=== PATIENT | female | born 1970 | race Caucasian/White ===

== ENCOUNTER 2018-11-11 09:56 | Inpatient (IN) ==
[2018-11-11] MEDS ORDERED: Acetaminophen IV 1,000 MG/100 ML INFUS..BTL IVPB PRN ×4 (11:57→18:00)
[2018-11-11] MEDS ORDERED: *HR* Promethazine 25 MG/ML VIAL IVP PRN (11:57)
[2018-11-11] MEDS ORDERED: OXYCODONE Oral CONC 10 MG/0.5 ML ORAL.SYG SL PRN ×4 (11:57→17:58)
[2018-11-11] MEDS ORDERED: Naloxone 0.4 MG/ML INJ IVP PRN ×2 (11:57→17:31)
[2018-11-11] MEDS ORDERED: Ondansetron 4 MG/2 ML VIAL IVP PRN ×2 (11:57→17:31)
[2018-11-11] MEDS ORDERED: 0.9 % Sodium Chloride 1,000 ML IVC SCH ×2 (12:00→17:31)
[2018-11-11] MEDS ORDERED: Promethazine 25 MG in 0.9 % Sodium Chloride 50 ML IVPB PRN ×2 (12:07→17:31)
--- NOTE | 2018-11-11 12:48 | Urology - Consult Note ---
<Ekta Farfan N - Last Filed: 11/11/18 12:43> Date of Encounter: 11/11/18 Time of Encounter: 12:00 - Assessment and Plan (1) Ureteral calculi Current Visit: Yes Status: Acute Assessment and plan: Patient is a 48-year-old female who presents with left proximal ureteral calculi and hydronephrosis. Vital signs are currently stable and afebrile. Urine culture has been collected. Discussed surgical risks and benefits with patient. Patient verbalized understanding, and consent has been signed. Patient is prepared undergo a cystoscopy and left ureteral stent placement later today with Dr. Mills. She will remain nothing by mouth. Patient is aware she will require a staged stone extraction procedure, and this will be scheduled as an outpatient. (2) Hydronephrosis Current Visit: Yes Status: Acute Qualifiers: Hydronephrosis type: with ureteral calculous obstruction Qualified Code(s): N13.2 - Hydronephrosis with renal and ureteral calculous obstruction Urology CN:HPI Consult date: 11/11/18 Reason for consult Urology: Other (left proximal ureteral stones) History of present illness: Patient is a 48-year-old female who presents with left proximal ureteral calculi and hydronephrosis. Patient underwent a CT of the abdomen and pelvis at [facility] revealing 2 proximal ureteral stones measuring up to 7 mm total and hydronephrosis. Patient initially presented to [facility] emergency department with complaints of left flank pain, chills, nausea and vomiting and was subsequently transferred to [facility] for urologic intervention. Patient states she is experienced symptoms for approximately 2 days. Patient states she has a recurrent history of renal stones, with her last stone occurring several years ago. Patient has a history of a brain aneurysm, and she states her memory is not reliable. Patient is unsure if she required surgical intervention for renal stones in the past. Patient denies any known family history of renal stones. Currently, patient is resting upright in bed in no apparent distress. Patient admits to left flank pain, chills, nausea, but she denies any dysuria, fever, gross hematuria, or incontinence. Past Med Surg Social Fam HX - Social History Smoking Status: Smoker, status unknown Alcohol use: unknown Drug use: unknown - Additional Family History Additional family history: Patient denies any known family history of renal stones Medications and Allergies Gabapentin [Neurontin] 300 mg PO TID 03/06/19 [History] RX: Etodolac 500 mg PO BID 11/11/18 [History] Allergy/AdvReac Type Severity Reaction Status Date / Time No Known Drug Allergies Allergy NONE Verified 11/11/18 12:51 Review of Systems - Constitutional chills, fatigue, no fever(s) - EENT Nose, mouth and throat: no dizziness, no headache(s) - Cardiovascular no chest pain, no diaphoresis, no dyspnea - Respiratory no cough, no dyspnea - Gastrointestinal abdominal pain, nausea, vomiting - Genitourinary Genitourinary: flank pain, no change in urinary stream, no difficulty urinating, no dysuria, no hematuria, no urinary frequency, no urinary hesitancy, no urinary incontinence, no urinary urgency - Musculoskeletal back pain, no muscle weakness - Integumentary no erythema, no rash - Neurological no confusion, no syncope - Psychiatric no anxiety, no confusion - Hematologic/Lymphatic no easy bleeding, no easy bruising - Allergic/Immunologic no throat swelling, no wheezing Exam Initial Vital Signs Temp Pulse Resp BP Pulse Ox 98.5 F 82 18 107/72 100 11/11/18 12:03 11/11/18 12:03 11/11/18 12:03 11/11/18 12:03 11/11/18 12:03 - General physical appearance Present: well developed, no distress, moderate pain - Eyes Present: PERRL, normal ocular movement - ENT Present: normal nares, no congestion - Neck Present: no masses, trachea midline - Respiratory Present: normal respiratory effort - Abdomen Abdomen: Present: soft, non tender - Integumentary Present: no rash, no abnormal pigmentation - Neurologic Present: normal coordination Urology Results - Labs All other labs normal. - Imaging CT scan - abdomen: report reviewed, image reviewed CT scan - pelvis: report reviewed Consult Discharge Plan - Plan Referrals: Jeremy Cash MD [Primary Care Provider] - <Matthew Mills - Last Filed: 11/11/18 18:12> Date of Encounter: 11/11/18 Exam Initial Vital Signs Temp Pulse Resp BP Pulse Ox 98.5 F 82 18 107/72 100 11/11/18 12:03 11/11/18 12:03 11/11/18 12:03 11/11/18 12:03 11/11/18 12:03 Urology Results - Labs Abnormal lab results ABG pH 7.28 pH Units (7.32-7.45) L 11/11/18 17:12 ABG pCO2 29 mmHg (35-45) L 11/11/18 17:12 ABG pO2 370 mmHg (85-104) H 11/11/18 17:12 ABG HCO3 14 mEq/L (21-27) L 11/11/18 17:12 ABG Total CO2 15 mEq/L (20-26) L 11/11/18 17:12 ABG O2 Saturation 100 % (95-98) H 11/11/18 17:12 ABG Base Excess -12 mEq/L (-2 to 3) L 11/11/18 17:12 ABG Hematocrit 33.0 % (35.3-44.9) L 11/11/18 17:12 ABG Chloride 117 mEq/L (98-107) H 11/11/18 17:12 Potassium 3.0 mEq/L (3.5-5.3) L 11/11/18 17:12 All other labs normal.
[2018-11-11] MEDS ORDERED: cefTRIAXone 1,000 MG in Water for inj. (sterile) 20 ML 10 ML IVP ONE (16:08)
--- NOTE | 2018-11-11 16:13 | Anesthesia Evaluation PreOp ---
Date of Encounter: 11/11/18 Time of Encounter: 16:10 - Past History Planned Operation: Cystoscopy, Left Ureteral Stent Cardiac History: Denies any Significant Hx Pulmonary History: Smoker INFORMATION SYSTEMS COORDINATOR History: Other (Brain Aneurysm, Insomnia, RA) Other Medical History: Renal (Stones, urosepsis), GERD, Other (Neuropathy) Anesthesia History: No Prior Anesthetic Complications, Past Anesthesia (Brain aneurysm Clipping< GB, C/s) : No Test: Negative (11/11/2018) Alcohol Use: rarely Drug use: none Medications and Allergies Etodolac 500 mg PO BID 11/11/18 [History] Gabapentin [Neurontin] 300 mg PO TID 11/11/18 [History] Allergy/AdvReac Type Severity Reaction Status Date / Time No Known Drug Allergies Allergy NONE Verified 11/11/18 12:51 - Meds/Allergy Pre-op Review Medications Reviewed: Yes Allergies Reviewed: Yes Beta Blockers on Current Med List: No Anesthesia Results - Labs Laboratory Tests 11/11/18 11/11/18 11:56 15:22 POC Glucose 89 Serum , Qual Negative Anesthesia Exam Vital Signs/O2 Sat, Most Current Temp Pulse Resp BP Pulse Ox 106.3 F H 133 19 114/70 98 11/11/18 15:59 11/11/18 15:59 11/11/18 15:59 11/11/18 15:59 11/11/18 15:59 NPO (# of Hours): > 8 hrs Pain Scale: 0 Pain Scale Used: Numeric (1 - 10) - HEENT Pupil (Motor): Pupils equal, EOMI Mallampati: II Teeth: Edentulous Oral Opening: Greater than 3 - INFORMATION SYSTEMS COORDINATOR LOC: Oriented INFORMATION SYSTEMS COORDINATOR Motor: Normal RUE, Normal LUE, Normal RLE, Normal LLE, Normal Face INFORMATION SYSTEMS COORDINATOR Sensory: Normal: RUE, LUE, RLE, LLE, Face - Cardiac Rhythm: Regular Murmur: None JVD: No Carotid Bruit: No - Pulmonary Breath Sounds: bilateral Clear Respiratory Effort: Symmetrical Anesthesia Assess/Plan ASA Score: 3 Level of consciousness: Cooperative Anesthetic Plan: General Autologous Blood: Yes Monitoring Plan: Standard Monitors Recovery Plan: PACU
[2018-11-11] MEDS ORDERED: Isovue-300 50 ML VIAL ONE (16:17)
[2018-11-11] MEDS ORDERED: *HR* Midazolam HCl 2 MG/2 ML VIAL ONE (16:20)
[2018-11-11] MEDS ORDERED: Ondansetron 4 MG/2 ML VIAL ONE (16:20)
[2018-11-11] MEDS ORDERED: *HR* FentaNYL (PF) 100 MCG/2 ML VIAL ONE (16:20)
[2018-11-11] MEDS ORDERED: Lidocaine -MPF 2% 2 ML VIAL ONE (16:20)
[2018-11-11] MEDS ORDERED: *HR* Propofol 200 MG/20 ML VIAL IVP ONE (16:20)
[2018-11-11] MEDS ORDERED: Dexamethasone 4 MG/ML VIAL ONE (16:20)
[2018-11-11] MEDS ORDERED: Acetaminophen IV 1,000 MG/100 ML INFUS..BTL ONE (16:22)
[2018-11-11] MEDS ORDERED: Water for inj. (sterile) 10 ML IV ONE (16:32)
[2018-11-11] MEDS ORDERED: *HR* Etomidate 40 MG/20 ML VIAL IVP ONE (16:33)
--- NOTE | 2018-11-11 16:35 | Event Note ---
Date of Encounter: 11/11/18 Time of Encounter: 16:33 I was contacted by 2A prior to pt transfer to the OR. She was noted to have a elevated temperature to 105 orally and tachycardia. Rectal temperature was 106. I evaluated the patient within minutes of the phone call and she was responsive and answering questions appropriately. She was somnolent however. I ordered 1 g of Tylenol IV, 1 g of Rocephin and a cooling blanket. She was immediately transferred to the operating room as I feel she requires urgent decompression of the left kidney with ureteral stent. I discussed the situation with the family. They understand that after decompression of the collecting system that her condition could worsen requiring prolonged intubation, vasopressors and ICU management. We will see how she responds to the procedure and anesthesia.
[2018-11-11] MEDS ORDERED: Lacri-Lube 3.5 GM TUBE ONE (16:38)
[2018-11-11] MEDS ORDERED: *HR* PHENYLEPHRINE 1,000 MCG/10 ML SYRINGE IVP ONE (16:51)
[2018-11-11 17:17] LABS: ABG Base Excess -12 mEq/L (-2 to 3); ABG Chloride 117 mEq/L (98-107); ABG Glucose 66 mg/dL (60-95); ABG HCO3 14 mEq/L (21-27); ABG Ionized Calcium 1.16 mmol/L (1.15-1.35); ABG Oxygen Saturation 100 % (95-98); ABG PCO2 29 mmHg (35-45); ABG PH 7.28 pH Units (7.32-7.45); ABG PO2 370 mmHg (85-104); ABG TCO2 15 mEq/L (20-26)
[2018-11-11] MEDS ORDERED: Sodium Bicarbonate 50 MEQ/50 ML VIAL ONE (17:20)
--- NOTE | 2018-11-11 17:27 | Pulmonology Consult Note ---
<DarlingIsadora M - Last Filed: 11/11/18 17:46> Date of Encounter: 11/11/18 Medications and Allergies Etodolac 500 mg PO BID 11/11/18 [History] Gabapentin [Neurontin] 300 mg PO TID 11/11/18 [History] Allergy/AdvReac Type Severity Reaction Status Date / Time No Known Drug Allergies Allergy NONE Verified 11/11/18 12:51 All Systems: The remainder of the systems were reviewed and are negative Physical Examination Vital Signs: Vital Signs, Last 4 Hours Temp Pulse Resp BP Pulse Ox 11/11/18 17:40 102.1 F H 105 20 94/52 98 11/11/18 17:30 112 24 94/64 99 11/11/18 17:20 112 24 103/51 98 11/11/18 17:10 103.1 F H 121 24 98/54 100 11/11/18 15:59 106.3 F H 133 19 114/70 98 Results - Laboratory Findings ABG ABG pH 7.28 pH Units (7.32-7.45) L 11/11/18 17:12 ABG pCO2 29 mmHg (35-45) L 11/11/18 17:12 ABG pO2 370 mmHg (85-104) H 11/11/18 17:12 ABG O2 Saturation 100 % (95-98) H 11/11/18 17:12 Abnormal lab findings: Abnormal lab results ABG pH 7.28 pH Units (7.32-7.45) L 11/11/18 17:12 ABG pCO2 29 mmHg (35-45) L 11/11/18 17:12 ABG pO2 370 mmHg (85-104) H 11/11/18 17:12 ABG HCO3 14 mEq/L (21-27) L 11/11/18 17:12 ABG Total CO2 15 mEq/L (20-26) L 11/11/18 17:12 ABG O2 Saturation 100 % (95-98) H 11/11/18 17:12 ABG Base Excess -12 mEq/L (-2 to 3) L 11/11/18 17:12 ABG Hematocrit 33.0 % (35.3-44.9) L 11/11/18 17:12 ABG Chloride 117 mEq/L (98-107) H 11/11/18 17:12 Potassium 3.0 mEq/L (3.5-5.3) L 11/11/18 17:12 - Clinical Findings Intake & Output: Intake & Output 11/11/18 11/11/18 11/11/18 07:59 15:59 23:59 Intake Total Output Total 0 / 0 Balance Weight 88.451 kg Consult Discharge Plan - Plan Referrals: Jeremy Cash MD [Primary Care Provider] - - Attending Attestation I examined this patient and my medical decision-making was reviewed with the Resident Physician. I agree with the documented findings, disposition and treatment plan as described except to the extent set forth below. Patient seen and examined. Dr. Mills from neurology called me to evaluate this patient and she was seen and examined in the PACU after her surgery Labs, radiology, chart personally reviewed. 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, Pulmonary: Acceptable oxygenation and ventilation, and her tachypnea is from her metabolic lactic acidosis, however she is maintaining Airway and she was extubated after surgery Cardiovascular: At this time relatively stable, however she will need more fluid and her condition could deteriorate for that reason she would need to be in the ICU for close monitoring this patient and with her significant temperature and she may need vasopressors if her condition does not improve with fluid GI: Nutrition per dietary and GI prophylaxis per routine Heme: DVT prophylaxis per routine ID: Continue antibiotics and plan to de-escalation. Clearly there is pus coming out and then catheter from her urinary system and that is the source for now we will double cover since she has previous history and could be resistant and she will be treated for sepsis with fluid resuscitation and cultures with broad- spectrum antibiotics and follow-up lactic acid. Renal; urine out put and renal funtion reviewed Endorcine: blood glucose is monitored Lines: all lines checked and no evidence of infections Skin: skin care to prevent pressure ulcers per nursing routine care I spent 35 min of Critical Care time with this patient. It involved decision making of high complexity to assess, manipulate, and support vital organ system failure and/or to prevent further life threatening deterioration of the patient's condition. The time involved in the performance of separately reportable procedures was not counted toward critical care time. <Angus Phelps S - Last Filed: 11/11/18 18:13> Date of Encounter: 11/11/18 Time of Encounter: 17:55 Assessment and Plan (1) Sepsis Current Visit: Yes Status: Acute Pt who is here for left proximal ureteral stone, has past hx of kidney stones - had cystoscopy with left retrograde pyelogram and left ureteral stent placement with Dr Mills this afternoon - noted to be 106* in the OR Meets SIRS criteria for fever, HR 110, RR 24 - source of infxn likely infected stone CT from [facility] showed proximal ureteral stones measuring up to 7 mm total and hydronephrosis. Plan: - management in the ICU overnight - blood cx pending - urine cx pending - start levaquin/zosyn day 1 - give D5 in 2amps bicarb - IVF with 200cc/hr LR - acetaminophen IV for breakthru pain or fevers q6hr - oxycodone SL q6hr prn pain - cbc and cmp in AM Qualifiers: Sepsis type: sepsis due to unspecified organism Qualified Code(s): A41.9 - Sepsis, unspecified organism (2) Fever Current Visit: Yes Status: Acute T max of 106. See plan as above for sepsis. Qualifiers: Fever type: due to other condition Qualified Code(s): R50.81 - Fever presenting with conditions classified elsewhere (3) History of brain surgery Current Visit: Yes Status: Acute Has hx of brain aneurysm. (4) Obesity Current Visit: Yes Status: Acute BMI 30.5 chronic Qualifiers: Obesity type: due to excess calories Obesity classification: adult class 1 (BMI 30 - 34.9) Serious obesity comorbidity presence: without serious comorbidity Body mass index: BMI 30.0-30.9 Qualified Code(s): E66.09 - Other obesity due to excess calories; Z68.30 - Body mass index (BMI) 30.0-30.9, adult (5) Peripheral neuropathy Current Visit: Yes Status: Acute on gabapentin Qualifiers: Peripheral neuropathy type: polyneuropathy, unspecified Qualified Code(s): G62.9 - Polyneuropathy, unspecified (6) Ureteral calculi Current Visit: Yes Status: Acute S/P Cystoscopy w/ left retrograde pyelogram and left ureteral stent placement. (7) Hydronephrosis Current Visit: Yes Status: Acute Likely secondary to kidney stone. Qualifiers: Hydronephrosis type: with ureteral calculous obstruction Qualified Code(s): N13.2 - Hydronephrosis with renal and ureteral calculous obstruction (8) DVT prophylaxis Current Visit: Yes Status: Acute scd (9) Nausea Current Visit: Yes Status: Acute Zofran prn History of Present Illness Consult date: 11/11/18 Requesting physician: Matthew Mills Reason for consult: other (temperature 106) Chief complaint: kidney stone History of present illness: Pt is a 48yo femlae who is here with left proximal ureteral calculi and hyd ronephrosis. She was taken to the OR by Dr Mills for stone removal and noted to have extremely pussy material coming from the ureter. She does have a PMH of previous kidney stone and brain aneuyrsm. She had a CT abd/pelvis at [facility] which showed a 2 proximal ureteral stones measuring up to 7 mm total and hydronephrosis. She had complaints of left flank pain, chills and some N/V x 2 days. She was transferred to [facility]. During surgery she was noted to have a temperature f 106* and was cooled while on the table as well as w/ IV tylonal. She was seen at bedside by myself and Dr. Hastings after surgery. She is very lethargic and tired. She will be moved to ICU for further evaluation and treatment. She does say she is unsure of some of the events and history bc of her brain surgery for the aneurysm that her memory is not reliable. Past Med Surg Social Fam HX - Past Medical History Medical history: GERD, RA, other Additional medical history: Neuropathy, Brain Aneurysm & kidney stones Psychiatric history: depression, panic disorder - Past Surgical History Surgical History: , cholecystectomy Additional surgical history: Right knee & B/L shoulder surgery, Brain aneurysm surgery and kidney stone surgery - Social History Smoking Status: Current every day smoker Packs per day: 1 Smokeless Tobacco Status: No Alcohol use: rarely Drug use: none - Family History Mother Living Status: Age at : 63 Cause of : Cancer Hx Family Cancer: Yes (Melanoma) Father Living Status: Age at : 72 Cause of : Alzheimers Hx Family Neuromuscular Disorders: Yes (Alzheimers) All Systems: The remainder of the systems were reviewed and are negative - Constitutional Constitutional: chills, fever(s) - Cardiovascular Cardiovascular: no chest pain, no chest pain at rest, no lightheadedness - Respiratory Respiratory: no cough, no dyspnea - Gastrointestinal Gastrointestinal: abdominal pain, nausea, vomiting - Genitourinary Genitourinary: urinary frequency - Neurological Neurological: weakness - Endocrine Endocrine: fatigue - Hematologic/Lymphatic Hematologic/Lymphatic: no easy bleeding, no easy bruising Physical Examination Vital Signs: Vital Signs, Last 4 Hours Temp Pulse Resp BP Pulse Ox 11/11/18 15:59 106.3 F H 133 19 114/70 98 General appearance: lethargic Eyes: nonicteric ENT: oropharynx dry Effort: mildly labored Auscultation: bilateral: diminished breath sounds, other (no wheeze/rhonchi or rales) Cardiovascular: other (tacycardia) Gastrointestinal: soft, tender, non-distended, other (midline scar form c- section, obese abd) Integumentary: normal Extremities: no cyanosis, no edema, pink and warm, pulses normal, no ischemia or petechiae Musculoskeletal: no deformities unable to assess due to mental status other (unable to assess, very lethargic ) Results - Laboratory Findings ABG ABG pH 7.28 pH Units (7.32-7.45) L 11/11/18 17:12 ABG pCO2 29 mmHg (35-45) L 11/11/18 17:12 ABG pO2 370 mmHg (85-104) H 11/11/18 17:12 ABG O2 Saturation 100 % (95-98) H 11/11/18 17:12 Abnormal lab findings: Abnormal lab results ABG pH 7.28 pH Units (7.32-7.45) L 11/11/18 17:12 ABG pCO2 29 mmHg (35-45) L 11/11/18 17:12 ABG pO2 370 mmHg (85-104) H 11/11/18 17:12 ABG HCO3 14 mEq/L (21-27) L 11/11/18 17:12 ABG Total CO2 15 mEq/L (20-26) L 11/11/18 17:12 ABG O2 Saturation 100 % (95-98) H 11/11/18 17:12 ABG Base Excess -12 mEq/L (-2 to 3) L 11/11/18 17:12 ABG Hematocrit 33.0 % (35.3-44.9) L 11/11/18 17:12 ABG Chloride 117 mEq/L (98-107) H 11/11/18 17:12 Potassium 3.0 mEq/L (3.5-5.3) L 11/11/18 17:12 - Clinical Findings Intake & Output: Intake & Output 11/11/18 11/11/18 11/11/18 07:59 15:59 23:59 Intake Total Output Total 0 / 0 Balance Weight 88.451 kg
--- NOTE | 2018-11-11 17:33 | Operative Note ---
Date of procedure: 11/11/18 Pre-op diagnosis: Left proximal ureteral stone Post-op diagnosis: same Procedure: Cystoscopy. Left retrograde pyelogram. Left ureteral stent placement. Anesthesia: GETA Surgeon: Matthew Mills Was there an human resources assistant present: No Estimated blood loss (cc): 0 Specimen: none Condition: critical Disposition: ICU Procedure in Detail: PROCEDURE IN DETAIL: Patient was taken back to the operating room, positioned supine on the operating table. Anesthesia was applied without complication. They were moved into dorsal lithotomy. Careful attention was maintained to cushion all pressure points for patient's safety. They were prepped and draped in sterile fashion. Time-out was performed with the proper patient and procedure. A 21-Palauan rigid cystoscope was inserted into the bladder without difficulty. Systematic examination of bladder revealed some cystitis cystica and significant debris. The left ureteral orifice was cannulated using a 5-Palauan ureteral Catheter and a retrograde pyelogram was performed using Isovue. A filling defect was identified which corresponded to the stone in the proximal ureter. At that point, a zip wire was placed through the 5-Palauan and confirmed in the renal pelvis with fluoroscopy. A 6 x 26 ureteral stent was placed over the zip wire. Significant purulent material was draining from her left collecting system. Stent was deployed in good position and I placed a Banks catheter to gravity drainage
[2018-11-11] MEDS ORDERED: SODIUM BICARBONATE IVC SCH (18:00)
[2018-11-11] MEDS ORDERED: Piperacillin/Tazobactam 3.375 GM in Water for inj. (sterile) 20 ML 20 ML IVP SCH (18:00)
[2018-11-11] MEDS ORDERED: WATER IVC SCH (18:00)
[2018-11-11] MEDS ORDERED: D5 IVC SCH (18:00)
[2018-11-11] MEDS ORDERED: Ringers Solution, Lactated 1,000 ML ONE (18:25)
[2018-11-11 18:35] LABS: Immature Granulocytes % 0.5 % (0-4); Red Cell Distribution Width 14.4 % (11.5-14.5)
[2018-11-11 18:36] LABS: Eosinophils % 0.3 %
[2018-11-11 18:38] LABS: Basophils % 0.3 %; Hematocrit 36.3 % (35.3-44.9); Hemoglobin 11.7 g/dL (11.5-15.4); Immature Platelets 1.7 % (1.1-6.1); Lymphocytes # 0.2 K/mcL (0.6-4.6); Lymphocytes % 4.6 %; Mean Corpuscular HGB Conc 32.2 g/dL (31.6-35.5); Mean Corpuscular Hemoglobin 29.2 pg (28.0-33.3); Mean Corpuscular Volume 90.5 fL (83.0-100.0); Mean Platelet Volume 9.6 fL (9.4-12.4); Monocytes % 0.5 %; Neutrophils # 3.5 K/mcL (1.6-8.9); Red Blood Count 4.01 M/mcL (3.82-4.97); Segmented Neutrophils % 93.8 %
[2018-11-11 18:55] LABS: Albumin 2.8 g/dL (3.5-5.7); Albumin/Globulin Ratio 1.5 (1.1-2.2); Bilirubin,Total 1.8 mg/dL (0.3-1.0); Calcium 7.3 mg/dL (8.6-10.3); Globulin 1.9 g/dL (2.4-3.5); Potassium 3.1 mEq/L (3.5-5.1); Total Protein 4.7 g/dL (6.4-8.9)
[2018-11-11] MEDS: Ringers Solution, Lactated 1,000 ML IVC SCH ×3 (19:00→22:17)
[2018-11-11 19:13] LABS: Large Platelets Present (Not Present); Platelet Count 93 K/mcL (140-400); Platelet Estimate Marked Decrease (Normal)
[2018-11-11] MEDS: Levofloxacin 750 MG/150 ML 750 MG/150 ML BAG IVPB SCH (20:44)
[2018-11-11] MEDS ORDERED: Sodium Bicarbonate 100 MEQ in D5% in Water 1,000 ML IVC SCH (20:45)
[2018-11-11] MEDS: Piperacillin/Tazobactam 3.375 GM in 0.9 % Sodium Chloride Mini Bag 100 ML IVP SCH (21:36)
[2018-11-11] MEDS: OXYCODONE Oral CONC 10 MG/0.5 ML ORAL.SYG SL PRN (21:59)
[2018-11-11] MEDS ORDERED: Ringers Solution, Lactated 500 ML IVC ONE (22:21)
[2018-11-11] MEDS ORDERED: Ringers Solution, Lactated 500 ML ONE (22:31)
[2018-11-12] MEDS ORDERED: Ringers Solution, Lactated 1,000 ML IVC ONE (00:39)
[2018-11-12] MEDS: Ringers Solution, Lactated 1,000 ML IVC SCH ×4 (01:50→16:35)
[2018-11-12 03:34] LABS: Hemoglobin 11.5 g/dL (11.5-15.4)
[2018-11-12 03:41] LABS: Basophils % 0.2 %; Eosinophils % 0.1 %; Hematocrit 36.4 % (35.3-44.9); Immature Granulocytes % 1.4 % (0-4); Immature Platelets 4.5 % (1.1-6.1); Lymphocytes # 0.4 K/mcL (0.6-4.6); Mean Corpuscular HGB Conc 31.6 g/dL (31.6-35.5); Mean Corpuscular Hemoglobin 29.2 pg (28.0-33.3); Mean Corpuscular Volume 92.4 fL (83.0-100.0); Mean Platelet Volume 10.3 fL (9.4-12.4); Monocytes # 0.5 K/mcL (0.0-1.3); Monocytes % 2.4 %; Neutrophils # 18.1 K/mcL (1.6-8.9); Red Blood Count 3.94 M/mcL (3.82-4.97); Red Cell Distribution Width 14.6 % (11.5-14.5); Segmented Neutrophils % 93.9 %
[2018-11-12 03:45] LABS: Platelet Count 91 K/mcL (140-400)
[2018-11-12 03:54] LABS: Calcium 7.3 mg/dL (8.6-10.3); Magnesium 1.7 mg/dL (1.6-2.6); Potassium 3.3 mEq/L (3.5-5.1)
[2018-11-12] MEDS: Piperacillin/Tazobactam 3.375 GM in 0.9 % Sodium Chloride Mini Bag 100 ML IVP SCH ×3 (04:03→22:34)
[2018-11-12 04:17] LABS: Platelet Estimate Slight Decrease (Normal)
--- NOTE | 2018-11-12 06:35 | Pulmonology Progress Note ---
<Angus Phelps S - Last Filed: 11/12/18 11:12> Date of Encounter: 11/12/18 Time of Encounter: 08:48 Assessment and Plan (1) Sepsis Current Visit: Yes Status: Acute Pt who is here for left proximal ureteral stone, has past hx of kidney stones - had cystoscopy with left retrograde pyelogram and left ureteral stent placement with Dr Mills this afternoon - noted to be 106* in the OR Meets SIRS criteria on admission for fever, HR 110, RR 24 - source of infxn likely infected stone Currently the pt is afebrile overnight. Does not meet SIRS criteria except for WBC of 19.3 CT from [place] showed proximal ureteral stones measuring up to 7 mm total and hydronephrosis. Plan: - blood cx pending - urine cx pending - start levaquin/zosyn day 2 - IVF with 200cc/hr LR, change to 100cc when transfered out - acetaminophen IV for breakthru pain or fevers q6hr - oxycodone SL q6hr prn pain - cbc and cmp in AM - pt can be moved out of ICU Qualifiers: Sepsis type: sepsis due to unspecified organism Qualified Code(s): A41.9 - Sepsis, unspecified organism (2) Fever Current Visit: Yes Status: Resolved T max of 106. Likely secondary to infected stone. See plan as above for sepsis. Qualifiers: Fever type: due to other condition Qualified Code(s): R50.81 - Fever presenting with conditions classified elsewhere (3) History of brain surgery Current Visit: Yes Status: Acute Has hx of brain aneurysm. (4) Obesity Current Visit: Yes Status: Acute Chronic BMI 33 Qualifiers: Obesity type: due to excess calories Obesity classification: adult class 1 (BMI 30 - 34.9) Serious obesity comorbidity presence: without serious comorbidity Body mass index: BMI 30.0-30.9 Qualified Code(s): E66.09 - Other obesity due to excess calories; Z68.30 - Body mass index (BMI) 30.0-30.9, adult (5) Peripheral neuropathy Current Visit: Yes Status: Acute continue gabapentin Qualifiers: Peripheral neuropathy type: polyneuropathy, unspecified Qualified Code(s): G62.9 - Polyneuropathy, unspecified (6) Ureteral calculi Current Visit: Yes Status: Acute S/P Cystoscopy w/ left retrograde pyelogram and left ureteral stent placement. (7) Hydronephrosis Current Visit: Yes Status: Acute Likely secondary to kidney stone. Qualifiers: Hydronephrosis type: with ureteral calculous obstruction Qualified Code(s): N13.2 - Hydronephrosis with renal and ureteral calculous obstruction (8) DVT prophylaxis Current Visit: Yes Status: Acute scd (9) Nausea Current Visit: Yes Status: Acute promethazine prn (10) Hypokalemia Current Visit: Yes Status: Acute Potassium 3.3 this morning, replaced. (11) Tobacco abuse Current Visit: Yes Status: Acute NRT ordered. Fruit Or Nut Farmer on cessation. Subjective Principal diagnosis: sepsis, fever, kidney stone Interval history: Pt is seen at bedside. She had no acute overnight events. She is resting quietly in no acute distress. Objective PUL Vital signs: Last Vital Signs Temp 97.4 F L 11/12/18 03:04 Pulse 83 11/12/18 06:02 Resp 14 11/12/18 06:02 BP 98/68 11/12/18 06:02 Pulse Ox 97 11/12/18 06:02 General appearance: no acute distress Eyes: nonicteric ENT: oropharynx dry Effort: normal Auscultation: bilateral: clear, other (speaking in full sentences w/o respiratory distress, no wheeze/rhonchi/rales) Cardiovascular: regular rate and rhythm Gastrointestinal: soft, non-tender, non-distended Integumentary: normal Extremities: edema Musculoskeletal: no deformities normal mental status, non-focal exam mood appropriate, affect normal Results - Laboratory Findings CBC and BMP: 11/12/18 03:15 11/12/18 03:15 ABG ABG pH 7.28 pH Units (7.32-7.45) L 11/11/18 17:12 ABG pCO2 29 mmHg (35-45) L 11/11/18 17:12 ABG pO2 370 mmHg (85-104) H 11/11/18 17:12 ABG O2 Saturation 100 % (95-98) H 11/11/18 17:12 Abnormal lab findings: Abnormal lab results WBC 19.3 K/mcL (4.3-11.1) H D 11/12/18 03:15 RDW 14.6 % (11.5-14.5) H 11/12/18 03:15 Plt Count 91 K/mcL (140-400) L 11/12/18 03:15 Neutrophils # 18.1 K/mcL (1.6-8.9) H 11/12/18 03:15 Lymphocytes # 0.4 K/mcL (0.6-4.6) L 11/12/18 03:15 Platelet Estimate Slight Decrease (Normal) L 11/12/18 03:15 Large Platelets Present (Not Present) A 11/11/18 18:04 ABG pH 7.28 pH Units (7.32-7.45) L 11/11/18 17:12 ABG pCO2 29 mmHg (35-45) L 11/11/18 17:12 ABG pO2 370 mmHg (85-104) H 11/11/18 17:12 ABG HCO3 14 mEq/L (21-27) L 11/11/18 17:12 ABG Total CO2 15 mEq/L (20-26) L 11/11/18 17:12 ABG O2 Saturation 100 % (95-98) H 11/11/18 17:12 ABG Base Excess -12 mEq/L (-2 to 3) L 11/11/18 17:12 ABG Hematocrit 33.0 % (35.3-44.9) L 11/11/18 17:12 ABG Chloride 117 mEq/L (98-107) H 11/11/18 17:12 Potassium 3.0 mEq/L (3.5-5.3) L 11/11/18 17:12 Potassium 3.3 mEq/L (3.5-5.1) L 11/12/18 03:15 Chloride 109 mEq/L (98-107) H 11/12/18 03:15 Carbon Dioxide 18 mEq/L (23-29) L 11/12/18 03:15 Creatinine 1.34 mg/dL (0.60-1.20) H 11/12/18 03:15 Est GFR ( Amer) 51 (> 60) L 11/12/18 03:15 Est GFR (Non-Af Amer) 42 (> 60) L 11/12/18 03:15 Glucose 154 mg/dL (70-105) H 11/12/18 03:15 POC Glucose 69 mg/dL (70-99) L 11/11/18 18:34 Lactic Acid 3.0 mmol/L (0.5-2.2) H 11/12/18 03:15 Calcium 7.3 mg/dL (8.6-10.3) L 11/12/18 03:15 Total Bilirubin 1.8 mg/dL (0.3-1.0) H 11/11/18 18:04 AST 45 Units/L (13-39) H 11/11/18 18:04 Alkaline Phosphatase 215 Units/L (34-104) H 11/11/18 18:04 Serum Total Protein 4.7 g/dL (6.4-8.9) L 11/11/18 18:04 Albumin 2.8 g/dL (3.5-5.7) L 11/11/18 18:04 Globulin 1.9 g/dL (2.4-3.5) L 11/11/18 18:04 - Microbiology Findings Microbiology Findings: Microbiology, Last 48 Hours 11/11/18 19:50 Urine Culture - Preliminary Urine,[place] Culture is incubating. 11/11/18 18:04 Blood Culture - Preliminary Peripheral Venipuncture Culture is incubating and being continuously monitored for growth. Final report to follow. 11/11/18 18:04 Blood Culture - Preliminary Peripheral Venipuncture Culture is incubating and being continuously monitored for growth. Final report to follow. - Clinical Findings Intake & Output: Intake & Output 11/11/18 11/11/18 11/12/18 15:59 23:59 07:59 Intake Total 2064 / 2064 2304 / 2304 Output Total 700 / 700 350 / 350 Balance 1364 / 1364 1954 / 1954 Weight 88.451 kg 95.6 kg Consult Discharge Plan - Plan Referrals: Jeremy Cash MD [Primary Care Provider] - <Isadora Hastings - Last Filed: 11/12/18 22:13> Date of Encounter: 11/12/18 Objective PUL Vital signs: Last Vital Signs Temp 96.4 F L 11/12/18 08:10 Pulse 83 11/12/18 06:02 Resp 14 11/12/18 06:02 BP 98/68 11/12/18 06:02 Pulse Ox 97 11/12/18 06:02 Results - Laboratory Findings CBC and BMP: 11/12/18 03:15 11/12/18 03:15 ABG ABG pH 7.28 pH Units (7.32-7.45) L 11/11/18 17:12 ABG pCO2 29 mmHg (35-45) L 11/11/18 17:12 ABG pO2 370 mmHg (85-104) H 11/11/18 17:12 ABG O2 Saturation 100 % (95-98) H 11/11/18 17:12 Abnormal lab findings: Abnormal lab results WBC 19.3 K/mcL (4.3-11.1) H D 11/12/18 03:15 RDW 14.6 % (11.5-14.5) H 11/12/18 03:15 Plt Count 91 K/mcL (140-400) L 11/12/18 03:15 Neutrophils # 18.1 K/mcL (1.6-8.9) H 11/12/18 03:15 Lymphocytes # 0.4 K/mcL (0.6-4.6) L 11/12/18 03:15 Platelet Estimate Slight Decrease (Normal) L 11/12/18 03:15 Large Platelets Present (Not Present) A 11/11/18 18:04 ABG pH 7.28 pH Units (7.32-7.45) L 11/11/18 17:12 ABG pCO2 29 mmHg (35-45) L 11/11/18 17:12 ABG pO2 370 mmHg (85-104) H 11/11/18 17:12 ABG HCO3 14 mEq/L (21-27) L 11/11/18 17:12 ABG Total CO2 15 mEq/L (20-26) L 11/11/18 17:12 ABG O2 Saturation 100 % (95-98) H 11/11/18 17:12 ABG Base Excess -12 mEq/L (-2 to 3) L 11/11/18 17:12 ABG Hematocrit 33.0 % (35.3-44.9) L 11/11/18 17:12 ABG Chloride 117 mEq/L (98-107) H 11/11/18 17:12 Potassium 3.0 mEq/L (3.5-5.3) L 11/11/18 17:12 Potassium 3.3 mEq/L (3.5-5.1) L 11/12/18 03:15 Chloride 109 mEq/L (98-107) H 11/12/18 03:15 Carbon Dioxide 18 mEq/L (23-29) L 11/12/18 03:15 Creatinine 1.34 mg/dL (0.60-1.20) H 11/12/18 03:15 Est GFR ( Amer) 51 (> 60) L 11/12/18 03:15 Est GFR (Non-Af Amer) 42 (> 60) L 11/12/18 03:15 Glucose 154 mg/dL (70-105) H 11/12/18 03:15 POC Glucose 69 mg/dL (70-99) L 11/11/18 18:34 Lactic Acid 3.4 mmol/L (0.5-2.2) H 11/12/18 09:02 Calcium 7.3 mg/dL (8.6-10.3) L 11/12/18 03:15 Total Bilirubin 1.8 mg/dL (0.3-1.0) H 11/11/18 18:04 AST 45 Units/L (13-39) H 11/11/18 18:04 Alkaline Phosphatase 215 Units/L (34-104) H 11/11/18 18:04 Serum Total Protein 4.7 g/dL (6.4-8.9) L 11/11/18 18:04 Albumin 2.8 g/dL (3.5-5.7) L 11/11/18 18:04 Globulin 1.9 g/dL (2.4-3.5) L 11/11/18 18:04 - Microbiology Findings Microbiology Findings: Microbiology, Last 48 Hours 11/11/18 19:50 Urine Culture - Preliminary Urine,[place] Culture is incubating. 11/11/18 18:04 Blood Culture - Preliminary Peripheral Venipuncture Culture is incubating and being continuously monitored for growth. Final report to follow. 11/11/18 18:04 Blood Culture - Preliminary Peripheral Venipuncture Culture is incubating and being continuously monitored for growth. Final report to follow. - Clinical Findings Intake & Output: Intake & Output 11/11/18 11/12/18 11/12/18 23:59 07:59 15:59 Intake Total 2064 / 2064 3304 / 3304 Output Total 700 / 700 350 / 350 500 / 500 Balance 1364 / 1364 2954 / 2954 -500 / -500 Weight 95.6 kg - Attending Attestation I examined this patient and my medical decision-making was reviewed with the Resident Physician. I agree with the documented findings, disposition and treatment plan as described except to the extent set forth below. Patient seen and examined. Labs, radiology, chart personally reviewed. Agree with resident's history and physical, assessment, plan with following comments: DENTAL AIDE: Patient follows commands, Pulmonary: Acceptable oxygenation and ventilation Cardiovascular: stable GI: Nutrition per dietary and GI prophylaxis per routine. Advance diet Heme: DVT prophylaxis per routine ID: Continue antibiotics and plan to de-escalation. Continue current coverage and follow up on cultures and sensitivity. Renal; urine out put and renal funtion reviewed. Decrease IVF and stop it all after she finish her Bicarb drip. Patient is feeling better and discussed with urologist. Catheter per urology and urine is more wolf now. Endorcine: blood glucose is monitored Lines: all lines checked and no evidence of infections Skin: skin care to prevent pressure ulcers per nursing routine care Transfer patient to the floor
[2018-11-12] MEDS: OXYCODONE Oral CONC 10 MG/0.5 ML ORAL.SYG SL PRN ×2 (08:29→17:43)
[2018-11-12] MEDS: Levofloxacin 750 MG/150 ML 750 MG/150 ML BAG IVPB SCH (08:29)
[2018-11-12] MEDS ORDERED: Potassium Chloride 20 MEQ, Lidocaine 1% 2 ML in D5% in Water 250 ML IVPB ONE (08:31)
--- NOTE | 2018-11-12 08:42 | Urology Progress Note ---
<Ekta Farfan N - Last Filed: 11/12/18 08:40> Date of Encounter: 11/12/18 Time of Encounter: 07:45 - Assessment and Plan (1) Ureteral calculi Current Visit: Yes Status: Acute Assessment and plan: Patient is a 48-year-old female who is one day status post cystoscopy, left retrograde pyelogram, and left ureteral stent placement. Patient spiked a temperature to 106 degrees postoperatively and was transferred to the intensive care unit. Currently, vital signs are stable and afebrile. White blood cell count is elevated to 19.3. Blood and urine cultures are pending. Patient is receiving IV Zosyn and Levaquin. Patient inquired about length of hospital stay, and we discussed the need for awaiting final culture and sensitivity report as well as remaining afebrile before patient can be considered for discha rge. (2) Hydronephrosis Current Visit: Yes Status: Acute Qualifiers: Hydronephrosis type: with ureteral calculous obstruction Qualified Code(s): N13.2 - Hydronephrosis with renal and ureteral calculous obstruction (3) Sepsis Current Visit: Yes Status: Acute Qualifiers: Sepsis type: sepsis due to unspecified organism Qualified Code(s): A41.9 - Sepsis, unspecified organism Progress Note Narrative: POD #1. Patient seen and examined sitting upright in bed in no apparent distress. Banks catheter is indwelling and draining clear urine into bedside bag. Patient has experienced some bladder spasms and leaking around Banks catheter. Currently, patient's pain is well-controlled, she denies any fever, chills, flank pain, chest pain or dyspnea. Objective Initial Vital Signs Temp Pulse Resp BP Pulse Ox 98.5 F 82 18 107/72 100 11/11/18 12:03 11/11/18 12:03 11/11/18 12:03 11/11/18 12:03 11/11/18 12:03 - General physical appearance Present: no distress, no pain - Respiratory Present: normal expansion, normal respiratory effort - Abdomen Present: soft, non tender - Genitourinary Urine Appearance: Present: Clear - Integumentary Present: no rash, no abnormal pigmentation - Musculoskeletal Present: normal posture - Psychiatric Present: oriented to time, oriented to person, oriented to place, speech is normal, memory intact - Labs 11/12/18 03:15 11/12/18 03:15 Diabetes panel 11/11/18 11/12/18 Range/Units 18:04 03:15 Sodium 139 136 (136-145) mEq/L Potassium 3.1 L 3.3 L (3.5-5.1) mEq/L Chloride 115 H 109 H (98-107) mEq/L Carbon Dioxide 15 L 18 L (23-29) mEq/L BUN 15 17 (6-20) mg/dL Creatinine 1.31 H 1.34 H (0.60-1.20) mg/dL Glucose 66 L 154 H (70-105) mg/dL Calcium 7.3 L 7.3 L (8.6-10.3) mg/dL AST 45 H (13-39) Units/L ALT 19 (7-52) Units/L Alkaline Phosphatase 215 H (34-104) Units/L Albumin 2.8 L (3.5-5.7) g/dL Calcium panel 11/11/18 11/12/18 Range/Units 18:04 03:15 Calcium 7.3 L 7.3 L (8.6-10.3) mg/dL Albumin 2.8 L (3.5-5.7) g/dL Pituitary panel 11/11/18 11/12/18 Range/Units 18:04 03:15 Sodium 139 136 (136-145) mEq/L Potassium 3.1 L 3.3 L (3.5-5.1) mEq/L Chloride 115 H 109 H (98-107) mEq/L Carbon Dioxide 15 L 18 L (23-29) mEq/L BUN 15 17 (6-20) mg/dL Creatinine 1.31 H 1.34 H (0.60-1.20) mg/dL Glucose 66 L 154 H (70-105) mg/dL Calcium 7.3 L 7.3 L (8.6-10.3) mg/dL Adrenal panel 11/11/18 11/12/18 Range/Units 18:04 03:15 Sodium 139 136 (136-145) mEq/L Potassium 3.1 L 3.3 L (3.5-5.1) mEq/L Chloride 115 H 109 H (98-107) mEq/L Carbon Dioxide 15 L 18 L (23-29) mEq/L BUN 15 17 (6-20) mg/dL Creatinine 1.31 H 1.34 H (0.60-1.20) mg/dL Glucose 66 L 154 H (70-105) mg/dL Calcium 7.3 L 7.3 L (8.6-10.3) mg/dL Total Bilirubin 1.8 H (0.3-1.0) mg/dL AST 45 H (13-39) Units/L ALT 19 (7-52) Units/L Alkaline Phosphatase 215 H (34-104) Units/L Albumin 2.8 L (3.5-5.7) g/dL Consult Discharge Plan - Plan Referrals: Jeremy Cash MD [Primary Care Provider] - <Matthew Mills - Last Filed: 11/12/18 18:42> Date of Encounter: 11/12/18 - Assessment and Plan (1) Sepsis Current Visit: Yes Status: Acute Assessment and plan: pt much improved after stent placement. Continue to follow cultures. Will need 2 weeks of outpatient antibiotics. Will likely require outpatient PCNL for complete stone clearance. Qualifiers: Sepsis type: sepsis due to unspecified organism Qualified Code(s): A41.9 - Sepsis, unspecified organism Objective Initial Vital Signs Temp Pulse Resp BP Pulse Ox 98.5 F 82 18 107/72 100 11/11/18 12:03 11/11/18 12:03 11/11/18 12:03 11/11/18 12:03 11/11/18 12:03 - Labs 11/12/18 03:15 11/12/18 03:15 Diabetes panel 11/11/18 11/12/18 Range/Units 18:04 03:15 Sodium 139 136 (136-145) mEq/L Potassium 3.1 L 3.3 L (3.5-5.1) mEq/L Chloride 115 H 109 H (98-107) mEq/L Carbon Dioxide 15 L 18 L (23-29) mEq/L BUN 15 17 (6-20) mg/dL Creatinine 1.31 H 1.34 H (0.60-1.20) mg/dL Glucose 66 L 154 H (70-105) mg/dL Calcium 7.3 L 7.3 L (8.6-10.3) mg/dL AST 45 H (13-39) Units/L ALT 19 (7-52) Units/L Alkaline Phosphatase 215 H (34-104) Units/L Albumin 2.8 L (3.5-5.7) g/dL Calcium panel 11/11/18 11/12/18 Range/Units 18:04 03:15 Calcium 7.3 L 7.3 L (8.6-10.3) mg/dL Albumin 2.8 L (3.5-5.7) g/dL Pituitary panel 11/11/18 11/12/18 Range/Units 18:04 03:15 Sodium 139 136 (136-145) mEq/L Potassium 3.1 L 3.3 L (3.5-5.1) mEq/L Chloride 115 H 109 H (98-107) mEq/L Carbon Dioxide 15 L 18 L (23-29) mEq/L BUN 15 17 (6-20) mg/dL Creatinine 1.31 H 1.34 H (0.60-1.20) mg/dL Glucose 66 L 154 H (70-105) mg/dL Calcium 7.3 L 7.3 L (8.6-10.3) mg/dL Adrenal panel 11/11/18 11/12/18 Range/Units 18:04 03:15 Sodium 139 136 (136-145) mEq/L Potassium 3.1 L 3.3 L (3.5-5.1) mEq/L Chloride 115 H 109 H (98-107) mEq/L Carbon Dioxide 15 L 18 L (23-29) mEq/L BUN 15 17 (6-20) mg/dL Creatinine 1.31 H 1.34 H (0.60-1.20) mg/dL Glucose 66 L 154 H (70-105) mg/dL Calcium 7.3 L 7.3 L (8.6-10.3) mg/dL Total Bilirubin 1.8 H (0.3-1.0) mg/dL AST 45 H (13-39) Units/L ALT 19 (7-52) Units/L Alkaline Phosphatase 215 H (34-104) Units/L Albumin 2.8 L (3.5-5.7) g/dL
[2018-11-12] MEDS ORDERED: Nicotine 14 MG PATCH.TD24 TD SCH (09:00)
[2018-11-12] MEDS ORDERED: *HR* Promethazine 25 MG/ML VIAL IVP PRN (10:39)
[2018-11-12] MEDS ORDERED: Acetaminophen IV 1,000 MG/100 ML INFUS..BTL IVPB PRN (10:39)
[2018-11-12] MEDS ORDERED: Naloxone 0.4 MG/ML INJ IVP PRN (10:39)
[2018-11-12] MEDS ORDERED: OXYCODONE Oral CONC 10 MG/0.5 ML ORAL.SYG SL PRN (10:39)
[2018-11-12] MEDS ORDERED: Ondansetron 4 MG/2 ML VIAL IVP PRN (10:39)
[2018-11-13] MEDS: OXYCODONE Oral CONC 10 MG/0.5 ML ORAL.SYG SL PRN ×3 (01:23→19:39)
[2018-11-13] MEDS ORDERED: 0.9 % Sodium Chloride 500 ML IVC ONE ×2 (03:03→05:07)
[2018-11-13 04:24] LABS: Hemoglobin 10.6 g/dL (11.5-15.4)
[2018-11-13 04:26] LABS: Lymphocytes # 1.1 K/mcL (0.6-4.6); Mean Corpuscular HGB Conc 33.1 g/dL (31.6-35.5); Mean Corpuscular Hemoglobin 29.5 pg (28.0-33.3); Mean Corpuscular Volume 89.1 fL (83.0-100.0); Red Blood Count 3.59 M/mcL (3.82-4.97); Red Cell Distribution Width 14.8 % (11.5-14.5)
[2018-11-13 04:32] LABS: Platelet Count 84 K/mcL (140-400)
[2018-11-13 04:47] LABS: Calcium 7.9 mg/dL (8.6-10.3); Potassium 3.9 mEq/L (3.5-5.1)
[2018-11-13] MEDS: Piperacillin/Tazobactam 3.375 GM in 0.9 % Sodium Chloride Mini Bag 100 ML IVP SCH ×3 (06:11→21:29)
[2018-11-13 06:16] LABS: Monocytes # 1.6 K/mcL (0.0-1.3); Neutrophils # 24.5 K/mcL (1.6-8.9); Platelet Estimate Decreased (Normal)
[2018-11-13] MEDS ORDERED: Ringers Solution, Lactated 1,000 ML IVC SCH (06:30)
[2018-11-13] MEDS ORDERED: 0.9 % Sodium Chloride 1,000 ML IVC ONE (07:49)
--- NOTE | 2018-11-13 08:05 | Internal Med Progress Note ---
Hospitalist Progress Note - Encounter Date of Encounter: 11/13/18 Time of Encounter: 07:58 - Subjective Interval History: Patient seen and examined this morning at bedside. No acute overnight events. Afebrile overnight. Patient feeling much better. Is having good urine output and wanted to to 4 times overnight. Has not had bowel movement yet. - Exam Vitals: Temp Pulse Resp BP Pulse Ox 97.4 F L 82 14 82/65 96 11/13/18 06:25 11/13/18 06:25 11/13/18 06:25 11/13/18 06:25 11/13/18 06:25 Exam: General: In no acute distress. Conversant. Respiratory exam: CTAB. no accessory muscle use, rales, rhonchi, wheezes Cardiovascular exam: RRR, +S1, +S2. no murmur, gallop, rubs. GI/Abdominal exam: Non-tender, Non-distended, normal bowel sounds, soft, no peritoneal signs. Extremities exam: full ROM, no pedal edema, warm. no calf tenderness Neurological exam: CN II-XII intact, AO X3, no focal deficits. Skin exam: No skin rash, ulcer, purpura or ecchymosis. - Summary of Assessment and Plan Summary of Assessment and Plan: Sepsis - Secondary to Lt proximal ureteral stone associted with hydronephrohis and complicated UTI. - s/p cystoscopy with left retrograde pyelogram and left ureteral stent placement - White count elevated today, but aferbile and clinically improving - f/u blood cx. Urine culture with no growth - c.w levaquin/zosyn - Will give 1 L NS bolus and continue 100 cc LR - Urology following Peripheral neuropathy - continue gabapentin SYDNEE - secondary to sepsis and Lt ureteral stone - Renal function improving - unknown baseline Hydronephrosis - Likely secondary to kidney stone. - s/p stent DVT prophylaxis - scd Hypokalemia - resolved Tobacco abuse - c/w nicotine patch. Manufacture Specialist on cessation. - Time Spent with Patient Total time spent is greater than 50% in coordination of care (as documented) at patient's floor/unit and/or counseling patient: Internal Medicine: Result - Labs CBC & Chem 7: 11/13/18 04:00 11/13/18 04:00 Labs: Short CBC 11/13/18 Range/Units 04:00 WBC 27.2 H (4.3-11.1) K/mcL Hgb 10.6 L (11.5-15.4) g/dL Hct 32.0 L (35.3-44.9) % Plt Count 84 L (140-400) K/mcL Neutrophils # 24.5 H (1.6-8.9) K/mcL BMP 11/13/18 04:00 Sodium 139 Potassium 3.9 Chloride 111 H Carbon Dioxide 19 L BUN 20 Creatinine 1.17 Glucose 92 Calcium 7.9 L - ABG Interpretation ABG results: ABG ABG pH 7.28 pH Units (7.32-7.45) L 11/11/18 17:12 ABG pCO2 29 mmHg (35-45) L 11/11/18 17:12 ABG pO2 370 mmHg (85-104) H 11/11/18 17:12 ABG O2 Saturation 100 % (95-98) H 11/11/18 17:12 - Impressions Impressions Retrograde Pyelogram 11/11/18 16:45 IMPRESSION: Intraprocedural fluoroscopic spot images as above. See separate procedure report for more information. D/ / 11/11/2018 17:17:45 Alexandre Edwards MD / rony Interpreting Provider: Alexandre Edwards MD Consult Discharge Plan - Plan Referrals: Jeremy Cash MD [Primary Care Provider] -
[2018-11-13] MEDS: Nicotine 14 MG PATCH.TD24 TD SCH (08:23)
[2018-11-13] MEDS: Levofloxacin 750 MG/150 ML 750 MG/150 ML BAG IVPB SCH (08:24)
--- NOTE | 2018-11-13 09:45 | Urology Progress Note ---
<Ekta Farfan N - Last Filed: 11/13/18 10:06> Date of Encounter: 11/13/18 Time of Encounter: 09:44 - Assessment and Plan (1) Ureteral calculi Current Visit: Yes Status: Acute Assessment and plan: Patient is a 48 year old female who presents two days status post cystoscopy, left retrograde pyelogram, left ureteral stent placement. Vital signs are stable and afebrile. BP reassuring 111/74. I contacted [facility], and initial urine specimen that was collected there has been discarded due to contamination. Preliminary blood cultures are positive for gram negative rods. WBC count remains elevated at 27.2. Will repeat CBC in am and continue IV Levaquin and Zosyn. Awaiting final cultures and sensitivity report. (2) Hydronephrosis Current Visit: Yes Status: Acute Qualifiers: Hydronephrosis type: with ureteral calculous obstruction Qualified Code(s): N13.2 - Hydronephrosis with renal and ureteral calculous obstruction (3) Sepsis Current Visit: Yes Status: Acute Qualifiers: Sepsis type: sepsis due to unspecified organism Qualified Code(s): A41.9 - Sepsis, unspecified organism Progress Note Subjective: feels better Narrative: POD #2. Patient seen and examined sitting upright in bed in no apparent distress. Patient states pain is well controlled. Patient is voiding without difficulty. Patient denies fever, chills, or flank pain. Objective Initial Vital Signs Temp Pulse Resp BP Pulse Ox 98.5 F 82 18 107/72 100 11/11/18 12:03 11/11/18 12:03 11/11/18 12:03 11/11/18 12:03 11/11/18 12:03 - General physical appearance Present: well developed, no distress, no pain - Respiratory Present: normal expansion, normal respiratory effort - Abdomen Present: soft, non tender - Integumentary Present: no rash, no abnormal pigmentation - Musculoskeletal Present: normal posture - Psychiatric Present: oriented to time, oriented to person, speech is normal, memory intact - Labs 11/13/18 04:00 11/13/18 04:00 Diabetes panel 11/13/18 Range/Units 04:00 Sodium 139 (136-145) mEq/L Potassium 3.9 (3.5-5.1) mEq/L Chloride 111 H (98-107) mEq/L Carbon Dioxide 19 L (23-29) mEq/L BUN 20 (6-20) mg/dL Creatinine 1.17 (0.60-1.20) mg/dL Glucose 92 (70-105) mg/dL Calcium 7.9 L (8.6-10.3) mg/dL Calcium panel 11/13/18 Range/Units 04:00 Calcium 7.9 L (8.6-10.3) mg/dL Pituitary panel 11/13/18 Range/Units 04:00 Sodium 139 (136-145) mEq/L Potassium 3.9 (3.5-5.1) mEq/L Chloride 111 H (98-107) mEq/L Carbon Dioxide 19 L (23-29) mEq/L BUN 20 (6-20) mg/dL Creatinine 1.17 (0.60-1.20) mg/dL Glucose 92 (70-105) mg/dL Calcium 7.9 L (8.6-10.3) mg/dL Adrenal panel 11/13/18 Range/Units 04:00 Sodium 139 (136-145) mEq/L Potassium 3.9 (3.5-5.1) mEq/L Chloride 111 H (98-107) mEq/L Carbon Dioxide 19 L (23-29) mEq/L BUN 20 (6-20) mg/dL Creatinine 1.17 (0.60-1.20) mg/dL Glucose 92 (70-105) mg/dL Calcium 7.9 L (8.6-10.3) mg/dL Consult Discharge Plan - Plan Additional Instructions: expect stent discomfort - urgency, frequency, burning, light blood in the urine, flank pain low grade fever <101 not concerning. ok to take ibuprofen and tylenol. notify provider if fever >101. Notify provider for severe pain No activity restrictions but increased activity can cause more stent discomfort Okay to take [id number] AZO for dysuria My office contact patient schedule outpatient stone surgery Stay well hydrated Referrals: Jeremy Cash MD [Primary Care Provider] - (Unable to make appointment due to office being closed please schedule follow up appointment within 7-10 days of being discharged.) Matthew Mills MD [Partnered Physician] - (my office will call to schedule outpatient surgery. ) Prescriptions: RX: HYDROcodone/Acet 5/325 mg [[place] 5-325 mg] 1 tab PO Q6H PRN 7 Days #30 tab PRN Reason: Pain RX: Nicotine Patch [Nicoderm] 14 mg TD DAILY 30 Days #30 patch.td24 Sulfamethoxazole/Trimeth DS [Bactrim DS] 1 each PO BID #30 tablet <Matthew Mills - Last Filed: 11/14/18 09:23> Date of Encounter: 11/14/18 - Assessment and Plan (1) Sepsis Current Visit: Yes Status: Resolved Assessment and plan: Agree with physician assistants assessment and plan. Continue antibiotics. No change in management at this time Qualifiers: Sepsis type: sepsis due to unspecified organism Qualified Code(s): A41.9 - Sepsis, unspecified organism Objective Initial Vital Signs Temp Pulse Resp BP Pulse Ox 98.5 F 82 18 107/72 100 11/11/18 12:03 11/11/18 12:03 11/11/18 12:03 11/11/18 12:03 11/11/18 12:03 - Labs 11/14/18 05:03 11/14/18 05:03 Diabetes panel 11/14/18 Range/Units 05:03 Sodium 138 (136-145) mEq/L Potassium 3.7 (3.5-5.1) mEq/L Chloride 110 H (98-107) mEq/L Carbon Dioxide 22 L (23-29) mEq/L BUN 16 (6-20) mg/dL Creatinine 1.00 (0.60-1.20) mg/dL Glucose 76 (70-105) mg/dL Calcium 8.4 L (8.6-10.3) mg/dL Calcium panel 11/14/18 Range/Units 05:03 Calcium 8.4 L (8.6-10.3) mg/dL Pituitary panel 11/14/18 Range/Units 05:03 Sodium 138 (136-145) mEq/L Potassium 3.7 (3.5-5.1) mEq/L Chloride 110 H (98-107) mEq/L Carbon Dioxide 22 L (23-29) mEq/L BUN 16 (6-20) mg/dL Creatinine 1.00 (0.60-1.20) mg/dL Glucose 76 (70-105) mg/dL Calcium 8.4 L (8.6-10.3) mg/dL Adrenal panel 11/14/18 Range/Units 05:03 Sodium 138 (136-145) mEq/L Potassium 3.7 (3.5-5.1) mEq/L Chloride 110 H (98-107) mEq/L Carbon Dioxide 22 L (23-29) mEq/L BUN 16 (6-20) mg/dL Creatinine 1.00 (0.60-1.20) mg/dL Glucose 76 (70-105) mg/dL Calcium 8.4 L (8.6-10.3) mg/dL
[2018-11-13] MEDS: Fluticasone Propionate Nasal 50 MCG/SPRAY BOTTLE NS SCH (11:51)
[2018-11-14 05:34] LABS: Hemoglobin 10.3 g/dL (11.5-15.4); Red Cell Distribution Width 15.1 % (11.5-14.5)
[2018-11-14] MEDS: Piperacillin/Tazobactam 3.375 GM in 0.9 % Sodium Chloride Mini Bag 100 ML IVP SCH (05:35)
[2018-11-14 05:36] LABS: Basophils % 0.2 %; Hematocrit 31.1 % (35.3-44.9); Immature Granulocytes % 1.1 % (0-4); Immature Platelets 8.2 % (1.1-6.1); Lymphocytes # 1.8 K/mcL (0.6-4.6); Lymphocytes % 8.5 %; Mean Corpuscular HGB Conc 33.1 g/dL (31.6-35.5); Mean Corpuscular Hemoglobin 29.3 pg (28.0-33.3); Mean Corpuscular Volume 88.6 fL (83.0-100.0); Mean Platelet Volume 11.5 fL (9.4-12.4); Monocytes # 0.7 K/mcL (0.0-1.3); Monocytes % 3.2 %; Red Blood Count 3.51 M/mcL (3.82-4.97)
[2018-11-14] MEDS: OXYCODONE Oral CONC 10 MG/0.5 ML ORAL.SYG SL PRN (05:36)
[2018-11-14 05:43] LABS: Neutrophils # 18.7 K/mcL (1.6-8.9); Platelet Count 87 K/mcL (140-400)
[2018-11-14 05:57] LABS: BUN/Creatinine Ratio 16 (6-26); Blood Urea Nitrogen 16 mg/dL (6-20); Calcium 8.4 mg/dL (8.6-10.3); Carbon Dioxide 22 mEq/L (23-29); Chloride 110 mEq/L (98-107); Glucose 76 mg/dL (70-105); Osmolality,Calculated 286 (280-300); Potassium 3.7 mEq/L (3.5-5.1); Sodium 138 mEq/L (136-145); eGFR For Non-African Americans 59 (> 60)
[2018-11-14 06:13] LABS: Platelet Estimate Decreased (Normal)
--- NOTE | 2018-11-14 07:41 | Urology Progress Note ---
Date of Encounter: 11/14/18 Time of Encounter: 07:32 - Assessment and Plan (1) Sepsis Current Visit: Yes Status: Resolved Assessment and plan: pt greatly improved. final cultures here neg. pt very likely had urosepsis. BP lower but not overly concerning. no further fever. WBC decreased to 21. pt OK with discharge today. she is ambulating without difficulty. will start bactrim at discharge. my office will contact pt with followup surgery. Qualifiers: Sepsis type: sepsis due to unspecified organism Qualified Code(s): A41.9 - Sepsis, unspecified organism Progress Note Subjective: feels better Narrative: mild stent pain Objective Initial Vital Signs Temp Pulse Resp BP Pulse Ox 98.5 F 82 18 107/72 100 11/11/18 12:03 11/11/18 12:03 11/11/18 12:03 11/11/18 12:03 11/11/18 12:03 - General physical appearance Present: no distress - Abdomen Present: soft - Labs 11/14/18 05:03 11/14/18 05:03 Diabetes panel 11/14/18 Range/Units 05:03 Sodium 138 (136-145) mEq/L Potassium 3.7 (3.5-5.1) mEq/L Chloride 110 H (98-107) mEq/L Carbon Dioxide 22 L (23-29) mEq/L BUN 16 (6-20) mg/dL Creatinine 1.00 (0.60-1.20) mg/dL Glucose 76 (70-105) mg/dL Calcium 8.4 L (8.6-10.3) mg/dL Calcium panel 11/14/18 Range/Units 05:03 Calcium 8.4 L (8.6-10.3) mg/dL Pituitary panel 11/14/18 Range/Units 05:03 Sodium 138 (136-145) mEq/L Potassium 3.7 (3.5-5.1) mEq/L Chloride 110 H (98-107) mEq/L Carbon Dioxide 22 L (23-29) mEq/L BUN 16 (6-20) mg/dL Creatinine 1.00 (0.60-1.20) mg/dL Glucose 76 (70-105) mg/dL Calcium 8.4 L (8.6-10.3) mg/dL Adrenal panel 11/14/18 Range/Units 05:03 Sodium 138 (136-145) mEq/L Potassium 3.7 (3.5-5.1) mEq/L Chloride 110 H (98-107) mEq/L Carbon Dioxide 22 L (23-29) mEq/L BUN 16 (6-20) mg/dL Creatinine 1.00 (0.60-1.20) mg/dL Glucose 76 (70-105) mg/dL Calcium 8.4 L (8.6-10.3) mg/dL Consult Discharge Plan - Plan Referrals: Jeremy Cash MD [Primary Care Provider] -
--- NOTE | 2018-11-14 07:48 | Discharge Summary ---
Orders not resulted at time of discharge: Pending orders 11/11/18 18:04 Culture,Blood [] Routine Date of Encounter: 11/14/18 Time of Encounter: 07:48 - Discharge Diagnosis (1) Sepsis Priority: Primary Status: Resolved Comments: Sepsis secondary to obstructing stone. Status post stent placement. Patient stabilized. Qualifiers: Sepsis type: sepsis due to unspecified organism Qualified Code(s): A41.9 - Sepsis, unspecified organism - Hospital Course Hospital course: Ms. Sun is a 48 year old female admitted with an obstructing ureteral stone. High fever. Urosepsis. Patient has improved significantly after stent placement. Final cultures at [place] negative. Okay to discharge today. Blood pressure has been lower but concerning. No tachycardia. No lightheadedness. Ambulating without difficulty. Tolerating diet. Plan to discharge on 2 weeks of Bactrim. Time spent discussing smoking cessation with patient: 3 to 10 minutes - Time Spent with Patient Total time spent providing and/or coordinating discharge services: Less than 30 minutes Labs on day of discharge: Labs from last 24 hours 11/14/18 11/14/18 05:03 05:03 WBC 21.5 H RBC 3.51 L Hgb 10.3 L Hct 31.1 L MCV 88.6 MCH 29.3 MCHC 33.1 RDW 15.1 H Plt Count 87 L MPV 11.5 Immature Gran % 1.1 Seg Neutrophils % 87.0 Lymphocytes % 8.5 Monocytes % 3.2 Eosinophils % 0.0 Basophils % 0.2 Neutrophils # 18.7 H Lymphocytes # 1.8 Monocytes # 0.7 Eosinophils # 0.0 Basophils # 0.0 Platelet Estimate Decreased L Immature Plt Fraction 8.2 H Sodium 138 Potassium 3.7 Chloride 110 H Carbon Dioxide 22 L BUN 16 Creatinine 1.00 Est GFR ( Amer) > 60 Est GFR (Non-Af Amer) 59 L BUN/Creatinine Ratio 16 Glucose 76 Calculated Osmolality 286 Calcium 8.4 L Preliminary micro results at discharge 11/11/18 18:04 Blood Culture - Preliminary Peripheral Venipuncture Culture is incubating and being continuously monitored for growth. Final report to follow. 11/11/18 18:04 Blood Culture - Preliminary Peripheral Venipuncture Culture is incubating and being continuously monitored for growth. Final report to follow. - Impressions ITS Impressions Retrograde Pyelogram 11/11/18 16:45 IMPRESSION: Intraprocedural fluoroscopic spot images as above. See separate procedure report for more information. D/ / 11/11/2018 17:17:45 Alexandre Edwards MD / rony Interpreting Provider: Alexandre Edwards MD - Discharge Medications Prescriptions: New Calcium Carbonate [Tums] 1,000 mg PO Q4HR PRN tab.chew PRN Reason: Heartburn Fluticasone Propionate Nasal [Flonase] 100 mcg NS DAILY bottle HYDROcodone/Acet 5/325 mg [[place] 5-325 mg] 1 tab PO Q6H PRN 7 Days #30 tab PRN Reason: Pain Nicotine Patch [Nicoderm] 14 mg TD DAILY 30 Days #30 patch.td24 Omeprazole [PriLOSEC] 20 mg PO DAILY@0630 capsule. Sulfamethoxazole/Trimeth DS [Bactrim DS] 1 each PO BID #30 tablet Continue Gabapentin [Neurontin] 300 mg PO TID Etodolac 500 mg PO BID Home Medications: Etodolac 500 mg PO BID 11/11/18 [History] Gabapentin [Neurontin] 300 mg PO TID 11/11/18 [History] Calcium Carbonate [Tums] 1,000 mg PO Q4HR PRN tab.chew 11/14/18 [Rx] Fluticasone Propionate Nasal [Flonase] 100 mcg NS DAILY bottle 11/14/18 [Rx] HYDROcodone/Acet 5/325 mg [[place] 5-325 mg] 1 tab PO Q6H PRN 7 Days #30 tab 11/14/18 [Rx] Nicotine Patch [Nicoderm] 14 mg TD DAILY 30 Days #30 patch.td24 11/14/18 [Rx] Omeprazole [PriLOSEC] 20 mg PO DAILY@0630 capsule. 11/14/18 [Rx] Sulfamethoxazole/Trimeth DS [Bactrim DS] 1 each PO BID #30 tablet 11/14/18 [Rx] Allergies/Adverse Reactions: Allergy/AdvReac Type Severity Reaction Status Date / Time No Known Drug Allergies Allergy NONE Verified 11/11/18 12:51 Date of admission: 11/12/18 07:09 Primary care physician: Jeremy Cash MD Consults: 11/11/18 17:31 Consult to Critical Care [CONS] Routine Consulting Provider: [facility] [place] Reason for Consult: temp 106 Call Completed: Yes Discharging clinician: Matthew Mills Anticipated date of discharge: 11/14/18 Exam Initial Vital Signs Temp Pulse Resp BP Pulse Ox 98.5 F 82 18 107/72 100 11/11/18 12:03 11/11/18 12:03 11/11/18 12:03 11/11/18 12:03 11/11/18 12:03 - General physical appearance Present: well developed, no distress, no pain - Patient Status Disposition: Home, Self-Care Condition: Good Functional capacity at discharge: independent ambulation Overall status at discharge: patient is progressing back to baseline - Discharge Instructions Follow Up With: Jeremy Cash MD [Primary Care Provider] - Matthew Mills MD [Partnered Physician] - (my office will call to schedule outpatient surgery. ) Additional Instructions: expect stent discomfort - urgency, frequency, burning, light blood in the urine, flank pain low grade fever <101 not concerning. ok to take ibuprofen and tylenol. notify provider if fever >101. Notify provider for severe pain No activity restrictions but increased activity can cause more stent discomfort Okay to take [id number] AZO for dysuria My office contact patient schedule outpatient stone surgery Stay well hydrated - Diet and Activity Activity: other Diet: advance to your usual diet
[2018-11-14] MEDS: Nicotine 14 MG PATCH.TD24 TD SCH (09:08)
[2018-11-14] MEDS: Fluticasone Propionate Nasal 50 MCG/SPRAY BOTTLE NS SCH (09:11)
[2018-11-14] MEDS: Levofloxacin 750 MG/150 ML 750 MG/150 ML BAG IVPB SCH (10:28)
--- NOTE | 2018-11-14 11:23 | Discharge Summary ---
Orders not resulted at time of discharge: Pending orders 11/11/18 18:04 Culture,Blood [BC] Routine Date of Encounter: 11/14/18 Time of Encounter: 11:15 - Discharge Diagnosis (1) DVT prophylaxis Priority: Secondary Status: Acute (2) Hydronephrosis Priority: Primary Status: Acute Qualifiers: Hydronephrosis type: with ureteral calculous obstruction Qualified Code(s): N13.2 - Hydronephrosis with renal and ureteral calculous obstruction (3) Hypokalemia Priority: Secondary Status: Acute (4) Ureteral calculi Priority: Primary Status: Acute (5) Sepsis Priority: Primary Status: Resolved Qualifiers: Sepsis type: sepsis due to unspecified organism Qualified Code(s): A41.9 - Sepsis, unspecified organism (6) E coli bacteremia Priority: Primary Status: Acute Hospital course: Ms. Sun is a 48 year old female with past medical history of brain aneurysm, kidney stones, neuropathy, GERD, depression was admitted for left proximal ure teral calculi and hydronephrosis and sepsis with transfer from [facility]. Patient was seen by urology who performed cystoscopy, left retrograde pyelogram and left ureteral stent placement. Patient was continued on antibiotics including Levaquin and Zosyn. Patient received IV fluids. Patient feeling significantly better clinically with some leukocytosis still ongoing after antibiotics. No growth on blood culture and urine culture. However blood cultures from [facility] had growth of Escherichia coli susceptible to Bactrim. Patient would be discharged to finish 2 week course of Bactrim and follow up with urology. Discharge discussed with: patient, nurse - Time Spent with Patient Total time spent providing and/or coordinating discharge services: Time spent: Greater than 30 minutes (38) - Discharge Medications Prescriptions: New Calcium Carbonate [Tums] 1,000 mg PO Q4HR PRN tab.chew PRN Reason: Heartburn Fluticasone Propionate Nasal [Flonase] 100 mcg NS DAILY bottle HYDROcodone/Acet 5/325 mg [[place] 5-325 mg] 1 tab PO Q6H PRN 7 Days #30 tab PRN Reason: Pain Nicotine Patch [Nicoderm] 14 mg TD DAILY 30 Days #30 patch.td24 Omeprazole [PriLOSEC] 20 mg PO DAILY@0630 capsule. Sulfamethoxazole/Trimeth DS [Bactrim DS] 1 each PO BID #30 tablet Continue Gabapentin [Neurontin] 300 mg PO TID Etodolac 500 mg PO BID Home Medications: Etodolac 500 mg PO BID 11/11/18 [History] Gabapentin [Neurontin] 300 mg PO TID 11/11/18 [History] Calcium Carbonate [Tums] 1,000 mg PO Q4HR PRN tab.chew 11/14/18 [Rx] Fluticasone Propionate Nasal [Flonase] 100 mcg NS DAILY bottle 11/14/18 [Rx] HYDROcodone/Acet 5/325 mg [[place] 5-325 mg] 1 tab PO Q6H PRN 7 Days #30 tab 11/14/18 [Rx] Nicotine Patch [Nicoderm] 14 mg TD DAILY 30 Days #30 patch.td24 11/14/18 [Rx] Omeprazole [PriLOSEC] 20 mg PO DAILY@0630 capsule. 11/14/18 [Rx] Sulfamethoxazole/Trimeth DS [Bactrim DS] 1 each PO BID #30 tablet 11/14/18 [Rx] Allergies/Adverse Reactions: Allergy/AdvReac Type Severity Reaction Status Date / Time No Known Drug Allergies Allergy NONE Verified 11/11/18 12:51 Date of admission: 11/12/18 07:09 Primary care physician: Jeremy Cash MD Consults: 11/11/18 17:31 Consult to Critical Care [CONS] Routine Consulting Provider: [facility] [place] Reason for Consult: temp 106 Call Completed: Yes Discharging clinician: Fatimah Curiel Mares - Constitutional Vitals: Temp Pulse Resp BP Pulse Ox 98.5 F 93 14 99/63 94 11/14/18 02:28 11/14/18 02:28 11/14/18 02:28 11/14/18 02:28 11/14/18 02:28 Exam: General: In no acute distress. Conversant. Respiratory exam: CTAB. no accessory muscle use, rales, rhonchi, wheezes Cardiovascular exam: RRR, +S1, +S2. no murmur, gallop, rubs. GI/Abdominal exam: Non-tender, Non-distended, normal bowel sounds, soft, no peritoneal signs. Extremities exam: full ROM, no pedal edema, warm. no calf tenderness Neurological exam: CN II-XII intact, AO X3, no focal deficits. Skin exam: No skin rash, ulcer, purpura or ecchymosis. - Patient Status Disposition: Home, Self-Care Condition: Good - Discharge Instructions Follow Up With: Jeremy Cash MD [Primary Care Provider] - (Unable to make appointment due to office being closed please schedule follow up appointment within 7-10 days of being discharged.) Matthew Mills MD [Partnered Physician] - (my office will call to schedule outpatient surgery. ) Additional Instructions: expect stent discomfort - urgency, frequency, burning, light blood in the urine, flank pain low grade fever <101 not concerning. ok to take ibuprofen and tylenol. notify provider if fever >101. Notify provider for severe pain No activity restrictions but increased activity can cause more stent discomfort Okay to take [id number] AZO for dysuria My office contact patient schedule outpatient stone surgery Stay well hydrated
== END 2018-11-14 12:29 | disposition home or self-care (01) | DRG 720 ==
LOC: 2ANU → ICNU 17:38 → SUATTDRO 11-12 07:09 → 3BNU 11-12 16:10
PROVIDERS: ADMIT Urology; ATTEND Internal Medicine

== ENCOUNTER 2018-12-26 16:06 | Observation (INO) ==
[2018-12-26] MEDS ORDERED: 0.9 % Sodium Chloride 1,000 ML IVC ONE ×2 (16:19→17:04)
[2018-12-26] MEDS ORDERED: *HR* FentaNYL (PF) 100 MCG/2 ML VIAL IVP ONE (16:19)
[2018-12-26] MEDS ORDERED: Ondansetron 4 MG/2 ML VIAL IVP ONE (16:19)
--- NOTE | 2018-12-26 16:25 | Emergency Department Note ---
Disposition Clinical Impression: Chest pain Qualifiers: Chest pain type: unspecified Qualified Code(s): R07.9 - Chest pain, unspecified Disposition: Still a Patient General Adult HPI - General Chief complaint: ED Chest Pain Stated complaint: chest pain/MIGUEL Time Seen by Provider: 12/26/18 16:11 Source: family Limitations: no limitations Nursing Notes Reviewed: Yes Vital Signs Reviewed: Yes - History of Present Illness HPI Narrative: Attestation note: Patient was seen with the emergency medicine resident/nurse practitioner/physician real estate legal assistant/transitional resident/medical student: Dr. Marko Esparza I have personally performed a face to face evaluation on this patient. I have reviewed and agree with history and physical examination patient management and disposition. Briefly the salient points of the case are as follows: 48-year-old female history of recent sepsis from infected stone in the recent past site is clear and clean of infection or bleeding or opening at this time. Obtain a half of na usea vomiting pain central chest on the right side. Cough sputum production. Fever no chills. Chest is clear patient will get screening labs including lactate troponin EKG chest x-ray PA and lateral and d-dimer with IV fluids anti- medics analgesics. Disposition pending. Patient had an EKG which shows sinus tachycardia at 103 bpm normal axis normal intervals no acute ischemic changes. No old EKG available for comparison. Pain Scale: 8 - Related Data Home Medications Medication Instructions Recorded Confirmed Gabapentin [Neurontin] 300 mg PO TID 11/11/18 12/22/18 Cyclobenzaprine HCl 5 mg PO TID 12/22/18 12/22/18 HYDROcodone/Acet 5/325 mg [[place] 1 tab PO Q6H PRN 12/22/18 12/22/18 5-325 mg] Ranitidine HCl [Acid Card Cutter] 150 mg PO DAILY 12/22/18 12/22/18 Previous Rx's Medication Instructions Recorded Calcium Carbonate [Tums] 1,000 mg PO Q4HR PRN tab.chew 11/14/18 Fluticasone Propionate Nasal 100 mcg NS DAILY bottle 11/14/18 [Flonase] Nicotine Patch [Nicoderm] 14 mg TD DAILY 30 Days #30 11/14/18 patch.td24 Omeprazole [PriLOSEC] 20 mg PO DAILY@0630 capsule. 11/14/18 Cefdinir [Omnicef] 300 mg PO BID #28 capsule 12/24/18 Docusate [Colace] 100 mg PO BID #30 capsule 12/24/18 Allergies Allergy/AdvReac Type Severity Reaction Status Date / Time No Known Drug Allergies Allergy NONE Verified 11/11/18 12:51 Past Medical History - Past Medical History Medical history: Reports: GERD, kidney stones Psychiatric history: Reports: no psych history - Social History Smoking Status: Current every day smoker Smokeless Tobacco Status: No Alcohol use: Reports: rarely Drug use: Reports: none Physical Exam - General Limitations: no limitations General appearance: alert, anxious Course Vital Signs Temperature 100.3 F H 12/26/18 16:15 Pulse Rate 105 12/26/18 16:15 Respiratory Rate 20 12/26/18 16:15 Blood Pressure 122/99 12/26/18 16:15 O2 Sat by Pulse Oximetry 100 12/26/18 16:15 Temperature 100.3 F H 12/26/18 16:15 Pulse Rate 105 12/26/18 16:15 Respiratory Rate 20 12/26/18 16:15 Blood Pressure 122/99 12/26/18 16:15 O2 Sat by Pulse Oximetry 100 12/26/18 16:15 Oxygen Delivery Oxygen Delivery Room Air
--- NOTE | 2018-12-26 16:26 | Emergency Department Note ---
Disposition Clinical Impression: HAP (hospital-acquired pneumonia) Chest pain Qualifiers: Chest pain type: unspecified Qualified Code(s): R07.9 - Chest pain, unspecified Disposition: Admitted As Inpatient Referrals: Eric Judge DO [Primary Care Provider] - Forms: ED Satisfaction Letter General Adult HPI - General Chief complaint: ED Chest Pain Stated complaint: chest pain/MIGUEL Time Seen by Provider: 12/26/18 16:11 Source: family Limitations: no limitations Nursing Notes Reviewed: Yes Vital Signs Reviewed: Yes - History of Present Illness HPI Narrative: 48-year-old female presents emergency department with concern for epigastric and right-sided chest pain. Patient states that the sharp in nature and worsens on taking deep breaths. Patient reports being recently admitted and discharged from the hospital 4 days ago for obstructive ureteral stone and e. coli bactermia. Patient reports fevers, cough, sputum production. States that the pain radiates to the back. Patient denies any nausea or vomiting. Patient denies any abdominal pain. She states that all of her symptoms from her ureteral stent placement have resolved. reports that the site for which to drain was placed is looking good, no seepage or drainage onto the bandage. Pain Scale: 8 - Related Data Home Medications Medication Instructions Recorded Confirmed Gabapentin [Neurontin] 300 mg PO TID 11/11/18 12/22/18 Cyclobenzaprine HCl 5 mg PO TID 12/22/18 12/22/18 HYDROcodone/Acet 5/325 mg [Carpio 1 tab PO Q6H PRN 12/22/18 12/22/18 5-325 mg] Ranitidine HCl [Acid Canopy Inspector] 150 mg PO DAILY 12/22/18 12/22/18 Previous Rx's Medication Instructions Recorded Calcium Carbonate [Tums] 1,000 mg PO Q4HR PRN tab.chew 11/14/18 Fluticasone Propionate Nasal 100 mcg NS DAILY bottle 11/14/18 [Flonase] Nicotine Patch [Nicoderm] 14 mg TD DAILY 30 Days #30 11/14/18 patch.td24 Omeprazole [PriLOSEC] 20 mg PO DAILY@0630 capsule. 11/14/18 Cefdinir [Omnicef] 300 mg PO BID #28 capsule 12/24/18 Docusate [Colace] 100 mg PO BID #30 capsule 12/24/18 Allergies Allergy/AdvReac Type Severity Reaction Status Date / Time No Known Drug Allergies Allergy NONE Verified 11/11/18 12:51 All systems ED: reviewed and negative except as stated. Review of Systems: As Per HPI Constitutional: Reports: fever Cardiovascular: Reports: chest pain Respiratory: Reports: cough, dyspnea, sputum production Gastrointestinal: Denies: abdominal pain, nausea, vomiting Genitourinary: Denies: dysuria Musculoskeletal: Reports: back pain Integumentary: Denies: rash Neurological: Denies: headache Past Medical History - Past Medical History Attestation: Yes The following information was validated with the patient. Medical history: Reports: GERD, kidney stones Psychiatric history: Reports: no psych history - Social History Smoking Status: Current every day smoker Smokeless Tobacco Status: No Alcohol use: Reports: rarely Drug use: Reports: none Physical Exam - General Limitations: no limitations General appearance: alert, anxious - Head Head exam: normocephalic - Eye Eye exam: Present: EOMI. Absent: scleral icterus - ENT ENT exam: mucous membranes moist - Neck Neck exam: Present: trachea midline - Chest Chest inspection: Present: symmetric chest wall rise - Respiratory Respiratory exam: Present: normal lung sounds bilaterally. Absent: respiratory distress, accessory muscle use - Cardiovascular Cardiovascular exam: Present: normal rhythm, tachycardia, normal heart sounds - Abdominal Exam Abdominal exam: Present: soft, Non-Tender. Absent: distention, guarding, rebound, rigidity - Extremities Exam Extremities exam: Present: normal capillary refill - Back Exam Back exam: Present: full ROM - Neurological Exam Neurological exam: Present: alert, oriented X3 - Psychiatric Psychiatric exam: Present: normal affect, normal mood - Skin Skin exam: Present: warm, dry, intact, normal color. Absent: rash Course Vital Signs Temperature 100.3 F H 12/26/18 16:15 Pulse Rate 105 12/26/18 16:15 Respiratory Rate 20 12/26/18 16:15 Blood Pressure 122/99 12/26/18 16:15 O2 Sat by Pulse Oximetry 100 12/26/18 16:15 Temperature 100.3 F H 12/26/18 16:15 Pulse Rate 105 12/26/18 16:15 Respiratory Rate 20 12/26/18 16:15 Blood Pressure 122/99 12/26/18 16:15 O2 Sat by Pulse Oximetry 100 12/26/18 16:15 Oxygen Delivery Oxygen Delivery Room Air Medical Decision Making - MDM Narrative Medical decision making narrative: 48-year-old female presents emergency department with concern for fever, tachycardia, chest pain. Patient recently hospitalized. She has evidence of pneumonia on chest x-ray. Patient could not be perked out secondary to her tachycardia resolved hospital stay with her chest pain that was pleuritic in nature. Obtained a d-dimer which is elevated. We obtain a CTA of the chest which revealed pneumonia. This time, patient has been on ciprofloxacin over the last several days. Concern for distal acquired pneumonia. We will give vancomycin, Zosyn, Levaquin. Admit to hospital for further treatment of infection as well as pain control. She agrees with plan. Hemogram crit stable not in acute distress at this time. Blood cultures were obtained prior to administration of antimicrobials. Chest X-Ray 12/26/18 16:24 IMPRESSION: New bibasilar pulmonary opacities are favored to represent atelectasis, although early pneumonia is not excluded. Recommend radiographic follow-up to complete resolution. Increased perihilar markings with prominence of interstitial lung markings could be related to low lung volumes. Correlate with volume status to exclude early interstitial edema. D/ / 12/26/2018 16:52:31 Roney Mares MD / theo Interpreting Provider: Roney Mares MD Chest CTA 12/26/18 16:54 IMPRESSION: No evidence of pulmonary embolism. Bilateral inflammatory nodular opacities and developing consolidation in the right middle lobe. Likely reactive right mediastinal lymph nodes. Overall this favors infection. Noncontrast chest CT follow-up in 3 months is recommended to ensure resolution. D/ / Javon Yap / Jvaon Yap Interpreting Provider: Javon Yap - Lab Data Result diagrams: 12/26/18 16:15 12/26/18 16:15 Lab Results 12/26/18 12/26/18 12/26/18 Range/Units 16:15 16:15 16:15 WBC 9.5 (4.3-11.1) K/mcL RBC 4.53 (3.82-4.97) M/mcL Hgb 13.4 (11.5-15.4) g/dL Hct 40.8 (35.3-44.9) % MCV 90.1 (83.0-100.0) fL MCH 29.6 (28.0-33.3) pg MCHC 32.8 (31.6-35.5) g/dL RDW 14.6 H (11.5-14.5) % Plt Count 279 D (140-400) K/mcL MPV 9.9 (9.4-12.4) fL Immature Gran % 0.4 (0-4) % Seg Neutrophils % 72.9 % Lymphocytes % 16.2 % Monocytes % 8.0 % Eosinophils % 2.0 % Basophils % 0.5 % Neutrophils # 6.9 (1.6-8.9) K/mcL Lymphocytes # 1.5 (0.6-4.6) K/mcL Monocytes # 0.8 (0.0-1.3) K/mcL Eosinophils # 0.2 (0.0-0.6) K/mcL Basophils # 0.1 (0.0-0.2) K/mcL D-Dimer (0-500) ng/mLFEU Sodium 138 (136-145) mEq/L Potassium 3.6 (3.5-5.1) mEq/L Chloride 103 (98-107) mEq/L Carbon Dioxide 27 (23-29) mEq/L BUN 7 (6-20) mg/dL Creatinine 0.57 L (0.60-1.20) mg/dL Est GFR ( Amer) > 60 (> 60) Est GFR (Non-Af Amer) > 60 (> 60) BUN/Creatinine Ratio 12 (6-26) Glucose 119 H (70-105) mg/dL Calculated Osmolality 285 (280-300) Lactic Acid (0.5-2.2) mmol/L Calcium 9.2 (8.6-10.3) mg/dL Lactate Dehydrogenase 143 (140-271) Units/L Troponin I < 0.03 (< 0.04) ng/mL 12/26/18 12/26/18 Range/Units 16:15 16:35 WBC (4.3-11.1) K/mcL RBC (3.82-4.97) M/mcL Hgb (11.5-15.4) g/dL Hct (35.3-44.9) % MCV (83.0-100.0) fL MCH (28.0-33.3) pg MCHC (31.6-35.5) g/dL RDW (11.5-14.5) % Plt Count (140-400) K/mcL MPV (9.4-12.4) fL Immature Gran % (0-4) % Seg Neutrophils % % Lymphocytes % % Monocytes % % Eosinophils % % Basophils % % Neutrophils # (1.6-8.9) K/mcL Lymphocytes # (0.6-4.6) K/mcL Monocytes # (0.0-1.3) K/mcL Eosinophils # (0.0-0.6) K/mcL Basophils # (0.0-0.2) K/mcL D-Dimer 1062 H (0-500) ng/mLFEU Sodium (136-145) mEq/L Potassium (3.5-5.1) mEq/L Chloride (98-107) mEq/L Carbon Dioxide (23-29) mEq/L BUN (6-20) mg/dL Creatinine (0.60-1.20) mg/dL Est GFR ( Amer) (> 60) Est GFR (Non-Af Amer) (> 60) BUN/Creatinine Ratio (6-26) Glucose (70-105) mg/dL Calculated Osmolality (280-300) Lactic Acid 1.3 (0.5-2.2) mmol/L Calcium (8.6-10.3) mg/dL Lactate Dehydrogenase (140-271) Units/L Troponin I (< 0.04) ng/mL - EKG Data EKG #1 EKG attestation: Yes I reviewed and interpreted this EKG. EKG results narrative: 16:18 Heart rate 103 bpm, AR interval 135, QRS duration 94 ms, QT 329 ms, normal axis. Sinus tachycardia with a ventricular rate of 103 bpm. No evidence of any ischemic ST changes on this ECG.
[2018-12-26 16:39] LABS: Basophils # 0.1 K/mcL (0.0-0.2); Basophils % 0.5 %; Eosinophils # 0.2 K/mcL (0.0-0.6); Hematocrit 40.8 % (35.3-44.9); Hemoglobin 13.4 g/dL (11.5-15.4); Immature Granulocytes % 0.4 % (0-4); Lymphocytes # 1.5 K/mcL (0.6-4.6); Lymphocytes % 16.2 %; Mean Corpuscular HGB Conc 32.8 g/dL (31.6-35.5); Mean Corpuscular Hemoglobin 29.6 pg (28.0-33.3); Mean Corpuscular Volume 90.1 fL (83.0-100.0); Mean Platelet Volume 9.9 fL (9.4-12.4); Monocytes # 0.8 K/mcL (0.0-1.3); Neutrophils # 6.9 K/mcL (1.6-8.9); Platelet Count 279 K/mcL (140-400); Red Blood Count 4.53 M/mcL (3.82-4.97); Red Cell Distribution Width 14.6 % (11.5-14.5); Segmented Neutrophils % 72.9 %
[2018-12-26] MEDS ORDERED: Isovue-370 500 ML BOTTLE IVP ONE (16:54)
[2018-12-26 16:57] LABS: BUN/Creatinine Ratio 12 (6-26); Blood Urea Nitrogen 7 mg/dL (6-20); Calcium 9.2 mg/dL (8.6-10.3); Carbon Dioxide 27 mEq/L (23-29); Chloride 103 mEq/L (98-107); Glucose 119 mg/dL (70-105); Lactate Dehydrogenase 143 Units/L (140-271); Osmolality,Calculated 285 (280-300); Potassium 3.6 mEq/L (3.5-5.1); Sodium 138 mEq/L (136-145); eGFR For Non-African Americans > 60 (> 60)
[2018-12-26] MEDS ORDERED: Piperacillin/Tazobactam 3.375 GM in 0.9 % Sodium Chloride Mini Bag 100 ML IVPB ONE (17:00)
[2018-12-26] MEDS ORDERED: Levofloxacin 750 MG/150 ML 750 MG/150 ML BAG IVPB ONE ×2 (17:01→18:27)
[2018-12-26] MEDS ORDERED: levoFLOXacin 750 MG TABLET PO ONE (18:23)
[2018-12-26] MEDS ORDERED: Piperacillin/Tazobactam 3.375 GM in Water for inj. (sterile) 20 ML 20 ML IVP ONE (18:27)
[2018-12-26] MEDS ORDERED: *HR* Morphine Immed Rel 15 MG TABLET PO STA (18:28)
[2018-12-26] MEDS ORDERED: Naloxone 0.4 MG/ML INJ IVP PRN (21:33)
[2018-12-26] MEDS ORDERED: Ondansetron 4 MG/2 ML VIAL IVP PRN (21:33)
[2018-12-26] MEDS ORDERED: Acetaminophen 325 MG TABLET PO PRN (21:33)
[2018-12-26] MEDS ORDERED: *HR* OxyCODONE Immed Rel 5 MG TABLET PO PRN (21:33)
--- NOTE | 2018-12-26 21:46 | Internal Med History&Physical ---
Date of Encounter: 12/26/18 Time of Encounter: 21:25 Internal Medicine - H&P: HPI Chief complaint: Pneumonia Admitted From: Emergency Dept Plans for Post Hospital Care: Home History of present illness: Ms. Sun is a 48 year old female Patient presented to the emergency room with epigastric and right-sided chest pain. She says the onset was sudden, occurring yesterday evening, sharp in nature and worse with deep inhalation. She has a significant history of recent hospitalization for ureteral stone, complicated by Escherichia coli bacteremia. She has a left-sided nephrostomy tube in place, with no signs of infection. She was discharged from this hospital on December 24. She has never had symptoms like these before. She returned to the hospital for further evaluation. In the emergency room, patient's vital signs were significant for a temperature of 100.3, heart rate of 105, respiratory rate of 20. CBC within normal limits, BMP also within normal limits. D-dimer elevated to 1062, and troponin undete ctable. Lactic acid was 1.3. Chest x-ray and CT angiogram results are below, showing likely early pneumonia, consolidation in the right middle lobe. No pulmonary embolism. EKG showed no acute ischemic changes. She was given a total of 2 L in the emergency room, Tylenol for fever, morphine for pain. Blood cultures were drawn and she started on vancomycin, Levaquin and Zosyn. She was sent to the medical floor for further management. Upon my evaluation, patient is resting in the hospital bed in mild distress secondary to pain. She continues have mild chest pain particularly with deep breathing, belching and coughing. She denies abdominal pain, nausea, vomiting, diarrhea and constipation. She has some shortness of breath. She states that she has a family history of heart disease in her sister, her mother had melanoma cancer and her father had Alzheimer's disease. She has a history of brain aneurysms as well for which she sees a specialist. She is a full code. at bedside, has been helping manage the nephrostomy tube and dressing changes. He states that there have been no complications with this. Past Med Surg Social Fam HX - Past Medical History Medical history: arthritis, fibromyalgia, GERD, kidney stones Additional medical history: restless leg syndrome, renal stones, brain aneurysm x2, fibromyalgia Psychiatric history: no psych history - Past Surgical History Surgical History: cholecystectomy Additional surgical history: Brain aneurysm repair - Social History Smoking Status: Current every day smoker Packs per day: 0.5 Smokeless Tobacco Status: No Alcohol use: rarely Drug use: none Internal Medicine - H&P: Meds Calcium Carbonate [Tums] 1,000 mg PO Q4HR PRN tab.chew 11/14/18 [Rx] Cyclobenzaprine HCl 5 mg PO TID PRN 12/22/18 [History] Ranitidine HCl [Acid Nurse Healthcare Manager] 150 mg PO DAILY 12/22/18 [History] Docusate [Colace] 100 mg PO BID PRN 12/26/18 [History] Allergy/AdvReac Type Severity Reaction Status Date / Time No Known Drug Allergies Allergy NONE Verified 11/11/18 12:51 All Systems PM: A 10-system review of systems was performed and is negative for pertinent findings except as documented above in the HPI. - Constitutional Vitals: Temp Pulse Resp BP Pulse Ox 98.3 F 84 16 116/76 95 12/26/18 20:56 12/26/18 20:56 12/26/18 20:56 12/26/18 20:56 12/26/18 20:56 General appearance: Present: cooperative, mild distress, A&O X 3, pleasant, answers questions appropriately Exam: - - Head Head exam: Present: normal inspection - Eye Eye exam: Present: EOMI, normal appearance - Respiratory Respiratory exam: Present: CTAB. Absent: rales, respiratory distress, rhonchi, wheezes - Cardiovascular Cardiovascular exam: Present: RRR. Absent: distant heart sounds, systolic murmur - GI/Abdominal GI/Abdominal exam: Present: normal bowel sounds, soft. Absent: tenderness - Extremities Exam Extremities exam: Present: warm, radial pulses palpable and symmetrical. Absent: calf tenderness, pedal edema, tenderness - Neurological Exam Neurological exam: Present: no focal deficits, strengths equal and symetr throughout. Absent: motor sensory deficit, facial droop, speech deficit - Skin Skin exam: Present: dry, normal color, warm Internal Med - H&P Results - Labs CBC & Chem 7: 12/26/18 16:15 12/26/18 16:15 Labs: Short CBC 12/26/18 Range/Units 16:15 WBC 9.5 (4.3-11.1) K/mcL Hgb 13.4 (11.5-15.4) g/dL Hct 40.8 (35.3-44.9) % Plt Count 279 D (140-400) K/mcL Neutrophils # 6.9 (1.6-8.9) K/mcL BMP 12/26/18 16:15 Sodium 138 Potassium 3.6 Chloride 103 Carbon Dioxide 27 BUN 7 Creatinine 0.57 L Glucose 119 H Calcium 9.2 Cardiac Enzymes 12/26/18 Range/Units 16:15 Troponin I < 0.03 (< 0.04) ng/mL - Impressions ITS Impressions Chest X-Ray 12/26/18 16:24 IMPRESSION: New bibasilar pulmonary opacities are favored to represent atelectasis, although early pneumonia is not excluded. Recommend radiographic follow-up to complete resolution. Increased perihilar markings with prominence of interstitial lung markings could be related to low lung volumes. Correlate with volume status to exclude early interstitial edema. D/ / 12/26/2018 16:52:31 Roney Mares MD / theo Interpreting Provider: Roney Mares MD Chest CTA 12/26/18 16:54 IMPRESSION: No evidence of pulmonary embolism. Bilateral inflammatory nodular opacities and developing consolidation in the right middle lobe. Likely reactive right mediastinal lymph nodes. Overall this favors infection. Noncontrast chest CT follow-up in 3 months is recommended to ensure resolution. D/ / Javon Yap / Javon Yap Interpreting Provider: Javon Yap - Assessment and Plan (1) HAP (hospital-acquired pneumonia) Current Visit: Yes Status: Acute Assessment and plan: As seen on chest x-ray, patient had bibasilar pulmonary opacities, and chest CT angiogram confirmed bilateral inflammatory nodular opacities and developing consolidation in the right middle lobe with reactive right mediastinal lymph no romario. No PE was found. Patient was started on antibiotics in the emergency room blood cultures were drawn. Follow-up culture results Continue IV antibiotics Monitor vitals Oxygen supplementation as needed (2) Chest pain Current Visit: Yes Status: Acute Assessment and plan: Patient has some chest pain, which is likely related to her pneumonia, initial troponin in the emergency room was undetectable. EKG was negative for ischemic changes. 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 Qualifiers: Chest pain type: unspecified Qualified Code(s): R07.9 - Chest pain, unsp ecified (3) History of recent hospitalization Current Visit: Yes Status: Acute Assessment and plan: Patient recently in the hospital for renal stone extraction and nephrostomy tube placement. She has also been recently treated for Escherichia coli bacteremia. Continue dressing changes at nephrostomy site Managing pneumonia as above (4) Tobacco abuse Current Visit: No Status: Acute Assessment and plan: Nicotine patch as needed (5) DVT prophylaxis Current Visit: No Status: Acute Assessment and plan: Subcutaneous heparin - Time Spent With Patient Total time spent is greater than 50% in coordination of care (as documented) at patient's floor/unit and/or counseling patient: Greater than 35 minutes
[2018-12-26] MEDS: *HR* HYDROcodone/Acet 5/325 mg TABLET PO PRN (21:53)
[2018-12-26] MEDS: Pantoprazole 40 MG VIAL IVP SCH (21:53)
[2018-12-26] MEDS: Nicotine 21 MG PATCH.TD24 TD PRN (22:27)
[2018-12-27] MEDS: Piperacillin/Tazobactam 3.375 GM in 0.9 % Sodium Chloride Mini Bag 100 ML IVPB SCH ×2 (00:17→09:34)
[2018-12-27] MEDS: *HR* Heparin 5,000 UNIT/ML VIAL SQ SCH ×2 (04:12→17:26)
[2018-12-27] MEDS: *HR* HYDROcodone/Acet 5/325 mg TABLET PO PRN ×2 (04:12→15:27)
[2018-12-27 04:55] LABS: Hematocrit 37.3 % (35.3-44.9); Hemoglobin 12.1 g/dL (11.5-15.4); Mean Corpuscular HGB Conc 32.4 g/dL (31.6-35.5); Mean Corpuscular Hemoglobin 29.5 pg (28.0-33.3); Mean Platelet Volume 9.8 fL (9.4-12.4); Platelet Count 235 K/mcL (140-400); Red Cell Distribution Width 14.7 % (11.5-14.5)
[2018-12-27 05:12] LABS: BUN/Creatinine Ratio 10 (6-26); Blood Urea Nitrogen 5 mg/dL (6-20); Calcium 8.3 mg/dL (8.6-10.3); Carbon Dioxide 22 mEq/L (23-29); Chloride 109 mEq/L (98-107); Glucose 104 mg/dL (70-105); Osmolality,Calculated 284 (280-300); Potassium 3.7 mEq/L (3.5-5.1); Sodium 138 mEq/L (136-145); eGFR For Non-African Americans > 60 (> 60)
--- NOTE | 2018-12-27 08:09 | Internal Med Progress Note ---
Hospitalist Progress Note - Encounter Date of Encounter: 12/27/18 Time of Encounter: 08:09 - Subjective Interval History: Ms. Sun is a 48-year-old female who presents the emergency department yesterday for evaluation of right-sided chest pain. Patient's recent medical history is significant for obstructive renal stones, and patient was just discharged after ureteral stent removal. Patient states that she was at [employer] yesterday when she twisted to speak to simply behind her, which resulted in right-sided chest pain. She states that she feels this is musculoskeletal in origin, and does not think it is related to her heart in any way. Patient denies any ongoing chest pain, and states that her current discomfort is consistent with either musculoskeletal pain that she has experienced in the past. She denies any shortness of breath or palpitations. - Exam Vitals: Temp Pulse Resp BP Pulse Ox 97.3 F L 79 15 101/68 94 12/27/18 08:00 12/27/18 08:00 12/27/18 08:00 12/27/18 08:00 12/27/18 08:00 Exam: GENERAL: Well-developed, well-nourished adult female in no acute distress. HEENT: Atraumatic and normocephalic. CARDIOVASCULAR: Regular rate and rhythm. S1 and S2 present. No murmurs, gallops, or rubs. RESPIRATORY: CTA bilaterally. Chest rises and falls symmetrically without accessory muscle use. GASTROINTESTINAL: Abdomen is soft, nontender, nondistended. EXTREMITIES: No clubbing, cyanosis, or edema. SKIN: Warm, dry, and intact. NEUROLOGIC: Alert and oriented x3. Patient is cooperative with exam and answers questions appropriately. No apparent focal deficits. PSYCHIATRIC: Appropriate mood and affect. - Assessment and Plan (1) HAP (hospital-acquired pneumonia) Current Visit: Yes Status: Acute Assessment and Plan: CTA of the chest performed on 12/26/2018 demonstrated bilateral inflammatory nodular opacities in developing consolidation in the right middle lobe. Patient was also noted to have likely reactive right mediastinal lymph nodes. Findings were felt to most likely favor infection, though noncontrast chest CT was recomm ended in 3 months to ensure resolution. Patient was initially started on broad-spectrum IV antibiotic therapy with vancomycin, Levaquin, and Zosyn. - D/c vancomycin and zosyn; continue levaquin. - Urine antigens pending. (2) E coli bacteremia Current Visit: No Status: Acute Assessment and Plan: Patient had positive blood cultures obtained on 12/22/18 that were significant for presence of Escherichia coli. Patient was discharged from the hospital after stent removal, with home antibiotic therapy with Omnicef 300 mg BID. Review of antibiotic susceptibilities shows that the organism is sensitive to levofloxacin. - Continue IV Levaquin as above. - Repeat blood cultures pending. (3) Chest pain Current Visit: Yes Status: Acute Assessment and Plan: Unlikely cardiac in origin. Patient reports that she has had muscle tension ever since undergoing kidney stone removal and stent placement. Her current chest discomfort started after she turned, and she states is consistent in character with the muscle aches that she has been experiencing. EKG performed in the emergency department demonstrated no acute changes concerning for ischemia, and troponins have remained within normal limits. Nuclear stress test ordered; however, patient declined that, stating that she does not think her pain is cardiac in nature. - Continue telemetry monitoring (4) Tobacco abuse Current Visit: No Status: Acute Assessment and Plan: - Nicotine patch 21 mg TD daily. (5) DVT prophylaxis Current Visit: No Status: Acute Assessment and Plan: - SQ heparin. - Time Spent with Patient Total time spent is greater than 50% in coordination of care (as documented) at patient's floor/unit and/or counseling patient: Internal Medicine: Result - Labs CBC & Chem 7: 12/27/18 04:27 12/27/18 04:27 Labs: Short CBC 12/26/18 12/27/18 Range/Units 16:15 04:27 WBC 9.5 7.4 (4.3-11.1) K/mcL Hgb 13.4 12.1 (11.5-15.4) g/dL Hct 40.8 37.3 (35.3-44.9) % Plt Count 279 D 235 (140-400) K/mcL Neutrophils # 6.9 (1.6-8.9) K/mcL BMP 12/26/18 12/27/18 16:15 04:27 Sodium 138 138 Potassium 3.6 3.7 Chloride 103 109 H Carbon Dioxide 27 22 L BUN 7 5 L Creatinine 0.57 L 0.51 L Glucose 119 H 104 Calcium 9.2 8.3 L Cardiac Enzymes 12/26/18 12/26/1812/27/19 Range/Units 16:15 22:19 04:27 Troponin I < 0.03 < 0.03 < 0.03 (< 0.04) ng/mL - ABG Interpretation ABG results: PT/INR, D-dimer D-Dimer 1062 ng/mLFEU (0-500) H 12/26/18 16:15 - Impressions Impressions Chest X-Ray 12/26/18 16:24 IMPRESSION: 1. New bibasilar pulmonary opacities are favored to represent atelectasis, although early pneumonia is not excluded. Recommend radiographic follow-up to complete resolution. 2. Increased perihilar markings with prominence of interstitial lung markings could be related to low lung volumes. D/ / 12/26/2018 16:52:31 Roney Mares MD / theo Interpreting Provider: Roney Mares MD Chest CTA 12/26/18 16:54 IMPRESSION: No evidence of pulmonary embolism. Bilateral inflammatory nodular opacities and developing consolidation in the right middle lobe. Likely reactive right mediastinal lymph nodes. Overall this favors infection. Noncontrast chest CT follow-up in 3 months is recommended to ensure resolution. D/ / Javon Yap / Javon Yap Interpreting Provider: Javon Yap Consult Discharge Plan - Plan Referrals: Eric Judge DO [Primary Care Provider] - __ (3) Chest pain Qualifiers: Chest pain type: unspecified Qualified Code(s): R07.9 - Chest pain, unspecified
[2018-12-27] MEDS ORDERED: Levofloxacin 750 MG/150 ML 750 MG/150 ML BAG IVPB SCH ×2 (09:00→14:00)
[2018-12-27] MEDS: Pantoprazole 40 MG VIAL IVP SCH (09:33)
--- NOTE | 2018-12-27 10:47 | Event Note ---
Date of Encounter: 12/27/18 Time of Encounter: 10:43 Patient was seen and examined. I agree with the progress note as written by the resident physician. Patient is feeling well. Afebrile this am. Had chest pain on admission which is improving. EKG with no acute ischemic findings. She had trops neg x3. On abx for pneumonia. Offered a stress test and does not want it. She thinks chest pain is musculoskeletal. Tamx 100.3. Recently here with ureteral stone with E. Coli bactermeia with Bld cx + on 12/22 and not repeated after. Needed urological intervention in OR. Takes cipro at home. Currently on vacomycin and zosyn. GEN: NAD CVS: RRR. S1, S2, No m/r/g RESP: CTAB ABD: Soft, NT, ND, +BS EXT: No edema. 2+ DP. No rashes NEURO: Nonfocal I think its ok to c/w current abx Not interested in stress test I think if bld cultures are negative by tomorrow she can be discharged on oral abx. Has had recurrent + blood cultures.
[2018-12-27 12:36] LABS: Bilirubin,Urine Negative (Negative); Blood,Urine Small (Negative); Clarity,Urine Cloudy (Clear); Color,Urine Yellow (Yellow); Glucose,Urine (UA) Normal (Normal); Ketones,Urine Negative (Negative); Leukocyte Esterase,Urine Negative (Negative); Nitrite,Urine Negative (Negative); Protein,Urine Negative (Neg-Trace); Specific Gravity,Urine 1.017 (1.010-1.025); Urobilinogen,Urine Normal (Normal)
[2018-12-27 12:39] LABS: Bacteria,Urine None Seen per hpf (None-Few); Hyaline Casts,Urine None Seen per lpf (None-Few); RBC,Urine 15-30 per hpf (0-3); Squamous Epithelial Cell,Urine Many per lpf (None-Few); WBC,Urine 0-3 per hpf (0-3)
[2018-12-27 12:51] LABS: Yeast,Urine Moderate per hpf (None Seen)
[2018-12-27] MEDS ORDERED: Aminoglycoside Consult 1 EACH MC ONE (19:56)
[2018-12-27] MEDS: Nicotine 21 MG PATCH.TD24 TD PRN (20:08)
[2018-12-28] MEDS: *HR* HYDROcodone/Acet 5/325 mg TABLET PO PRN (03:00)
[2018-12-28 05:31] LABS: Basophils % 0.3 %; Eosinophils # 0.3 K/mcL (0.0-0.6); Eosinophils % 2.9 %; Hematocrit 36.1 % (35.3-44.9); Hemoglobin 11.9 g/dL (11.5-15.4); Immature Granulocytes % 0.7 % (0-4); Lymphocytes # 1.4 K/mcL (0.6-4.6); Lymphocytes % 16.5 %; Mean Corpuscular Hemoglobin 29.2 pg (28.0-33.3); Mean Corpuscular Volume 88.7 fL (83.0-100.0); Mean Platelet Volume 9.7 fL (9.4-12.4); Monocytes # 0.9 K/mcL (0.0-1.3); Monocytes % 10.6 %; Neutrophils # 5.9 K/mcL (1.6-8.9); Platelet Count 261 K/mcL (140-400); Red Blood Count 4.07 M/mcL (3.82-4.97); Red Cell Distribution Width 14.6 % (11.5-14.5)
[2018-12-28 05:51] LABS: BUN/Creatinine Ratio 10 (6-26); Blood Urea Nitrogen 5 mg/dL (6-20); Carbon Dioxide 25 mEq/L (23-29); Chloride 106 mEq/L (98-107); Glucose 100 mg/dL (70-105); Osmolality,Calculated 285 (280-300); Potassium 3.8 mEq/L (3.5-5.1); Sodium 139 mEq/L (136-145); eGFR For Non-African Americans > 60 (> 60)
[2018-12-28] MEDS: *HR* Heparin 5,000 UNIT/ML VIAL SQ SCH (06:05)
[2018-12-28] MEDS: Pantoprazole 40 MG VIAL IVP SCH (06:05)
[2018-12-28 07:38] VITALS: BP 122/77
--- NOTE | 2018-12-28 08:00 | Discharge Summary ---
<Amber Mora N - Last Filed: 12/28/18 13:30> - NOTES TO OUTPATIENT PROVIDER Notes to Outpatient Provider: Patient presents emergency department with chest pain, and was found to have healthcare associated pneumonia. She was started on IV of therapy with Levaquin, with transition to oral medication prior to discharge. She was provided with prescription for Levaquin 750 mg daily to complete 7 day course of therapy. Orders not resulted at time of discharge: Pending orders 12/26/18 16:19 ECG 12 lead ECG [ECG] Stat 12/26/18 16:35 Culture,Blood [BC] Stat 12/28/18 07:45 Vancomycin,Trough Timed Date of Encounter: 12/28/18 Time of Encounter: 08:00 - Discharge Diagnosis (1) E coli bacteremia Priority: Secondary Status: Acute (2) Chest pain Priority: Secondary Status: Acute Qualifiers: Chest pain type: unspecified Qualified Code(s): R07.9 - Chest pain, unspecified (3) Tobacco abuse Priority: Secondary Status: Acute (4) HAP (hospital-acquired pneumonia) Priority: Primary Status: Acute Hospital course: Ms. Sun is a 48 year old female who presented to the hospital for evaluation of chest pain. Initial workup, patient was noted to have bilateral inflammatory nodular opacities and a developing consolidation in the right middle lobe. Card iac workup was negative. She was initially started on Bactrim IV antibiotic therapy with vancomycin, Levaquin, and Zosyn. Patient was recently discharged from hospital, and blood cultures obtained during that admission were significant for Escherichia coli 2 sets. At the time of discharge, blood cultures obtained at the time of this admission were negative for growth. Patient was discharged with Levaquin 750 mg to complete 7 day course. She was instructed to continue taking Omnicef as directed by urology. She denied any shortness of breath, chest pain, chest congestion, or increased sputum pr oduction on day of discharge. - Time Spent with Patient Total time spent providing and/or coordinating discharge services: - Discharge Medications Prescriptions: New RX: Nicotine Patch [Nicoderm] 21 mg TD DAILY PRN #30 patch.td24 PRN Reason: Nicotine Cravings RX: levoFLOXacin [Levaquin] 750 mg PO DAILY #5 tablet Continue RX: Calcium Carbonate [Tums] 1,000 mg PO Q4HR PRN tab.chew PRN Reason: Heartburn RX: Cyclobenzaprine HCl 5 mg PO TID PRN PRN Reason: Muscle Spasm RX: Ranitidine HCl [Acid Performance Consultant] 150 mg PO DAILY RX: Docusate [Colace] 100 mg PO BID PRN PRN Reason: Constipation RX: Cefdinir [Omnicef] 300 mg PO BID Home Medications: RX: Calcium Carbonate [Tums] 1,000 mg PO Q4HR PRN tab.chew 11/14/18 [Rx] RX: Cyclobenzaprine HCl 5 mg PO TID PRN 12/22/18 [History] RX: Ranitidine HCl [Acid Performance Consultant] 150 mg PO DAILY 12/22/18 [History] RX: Docusate [Colace] 100 mg PO BID PRN 12/26/18 [History] RX: Cefdinir [Omnicef] 300 mg PO BID 12/28/18 [History] RX: Nicotine Patch [Nicoderm] 21 mg TD DAILY PRN #30 patch.td24 12/28/18 [Rx] RX: levoFLOXacin [Levaquin] 750 mg PO DAILY #5 tablet 12/28/18 [Rx] Allergies/Adverse Reactions: Allergy/AdvReac Type Severity Reaction Status Date / Time No Known Drug Allergies Allergy NONE Verified 11/11/18 12:51 Date of admission: 12/26/18 19:55 Primary care physician: Eric Judge DO Discharging clinician: Amber Mora Anticipated date of discharge: 12/28/18 - Constitutional Vitals: Temp Pulse Resp BP Pulse Ox 98.4 F 68 13 122/77 95 12/28/18 07:37 12/28/18 07:37 12/28/18 07:37 12/28/18 07:37 12/28/18 07:37 General appearance: Present: cooperative, mild distress, A&O X 3, pleasant, answers questions appropriately Exam: GENERAL: Well-developed, well-nourished adult female in no acute distress. HEENT: Atraumatic and normocephalic. CARDIOVASCULAR: Regular rate and rhythm. S1 and S2 present. No murmurs, gallops, or rubs. RESPIRATORY: CTA bilaterally. Chest rises and falls symmetrically without accessory muscle use. GASTROINTESTINAL: Abdomen is soft, nontender, nondistended. BACK: No CVA tenderness. EXTREMITIES: No clubbing, cyanosis, or edema. SKIN: Warm, dry, and intact. NEUROLOGIC: Alert and oriented x3. Patient is cooperative with exam and answers questions appropriately. No apparent focal deficits. PSYCHIATRIC: Appropriate mood and affect. - Patient Status Disposition: Home, Self-Care Condition: Good Functional capacity at discharge: independent ambulation Overall status at discharge: patient is progressing back to baseline - Discharge Instructions Instructions: Chest Pain (DC), Bacterial Pneumonia (DC) Follow Up With: Eric Judge DO [Primary Care Provider] - 12/31/18 10:00 am Additional Instructions: Follow up with your PCP in 3-5 days for reevaluation. Follow up with urology as previously scheduled. Continue taking home medications, including omnicef. Take levofloxacin 750mg daily for 5 days. Return to the emergency department if you develop fevers, chills, worsening pain, shortness of breath, or if new concerns arise. - Diet and Activity Activity: increase activity as tolerated Diet: regular diet <Patricia Ferguson - Last Filed: 12/28/18 13:55> Orders not resulted at time of discharge: Pending orders 12/26/18 16:35 Culture,Blood [BC] Stat Date of Encounter: 12/28/18 - Discharge Diagnosis (1) Tobacco abuse Status: Acute (2) E coli bacteremia Status: Acute (3) Chest pain Status: Acute Qualifiers: Chest pain type: unspecified Qualified Code(s): R07.9 - Chest pain, unspecified (4) HAP (hospital-acquired pneumonia) Status: Acute Hospital course: Ms. Sun is a 48 year old female - Time Spent with Patient Total time spent providing and/or coordinating discharge services: Time spent: Greater than 30 minutes Date of admission: 12/26/18 19:55 Primary care physician: Eric Judge DO - Constitutional Vitals: Temp Pulse Resp BP Pulse Ox 98.4 F 68 13 122/77 95 12/28/18 07:37 12/28/18 07:37 12/28/18 07:37 12/28/18 07:37 12/28/18 07:37 - Attending Attestation Patient was seen and examined. I agree with the discharge document as written by the resident physician. Patient admitted with pneumonia. Discharged on oral omnicef. Was on room air at discharge. Chest pain initially that resolved and was pleuritic. PE ruled out. GEN: NAD CVS: RRR. S1, S2, No m/r/g RESP: CTAB ABD: Soft, NT, ND, +BS EXT: No edema.No rashes. 2+ DP NEURO: Nonfocal Please note 35 minutes were spent on coordination of this discharge with patient, nursing staff, and care coordinators. .
--- NOTE | 2018-12-28 16:35 | Electrocardiograph Report ---
[place] [id number] Test Date: 2018-12-26 Pat Name: Elise Sun Department: EXAM6 Room: 3B55 Gender: F Dental Coordinator: : 1970 Requested By: Jj Geiger Order Number: [id number] Reading MD: Ondina Deleon Measurements Intervals [place] Rate: 103 P: 40 NC: 135 QRS: 40 QRSD: 94 T: 33 QT: 329 QTc: 431 Interpretive Statements Sinus tachycardia Borderline low voltage, extremity leads Electronically Signed On 12-28-2018 16:33:59 EDT by Ondina Deleon
== END 2018-12-28 12:12 | disposition home or self-care (01) ==
LOC: EMEROOARM 16:06 → 3BNU 16:06
PROVIDERS: ADMIT Internal Medicine; ATTEND Internal Medicine